=== PATIENT | male | born 1960 | race Caucasian/White ===

== ENCOUNTER 2018-09-23 14:36 | Outpatient (REF) | payer SELFPAY ==
[2018-09-23 22:51] LABS: Anion Gap 8.8 mmol/L (3-11); BUN 18 mg/dL (7-18); CO2 27.2 mmol/L (21.0-32.0); Calcium 8.9 mg/dL (8.5-10.1); Calculated LDL 97; Chloride 103 mmol/L (98-107); Cholesterol 194 mg/dL (50-200); Glucose 124 mg/dL (70-100); HDL Cholesterol 90 mg/dL (40-60); Magnesium 1.9 mg/dL (1.8-2.4); Potassium 4.4 mmol/L (3.5-5.1); Sodium 139 mmol/L (136-145); TSH (W/Ref FT4) 0.79 uIU/mL (0.358-3.74); Triglyceride 39 mg/dL (30-150)
[2018-09-25 10:42] LABS: Hepatitis C Ab w Rflx HCV PCR Negative (NEGAT)
== END 2018-09-23 14:56 ==
LOC: NCHCN 14:36
PROVIDERS: PCP Internal Medicine; Visit Provider Nurse Practitioner Family
DX: R07.9 Chest pain, unspecified (principal); F17.200 Nicotine dependence, unspecified, uncomplicated; F32.9 Major depressive disorder, single episode, unspecified; J44.9 Chronic obstructive pulmonary disease, unspecified; E66.9 Obesity, unspecified; Z11.59 Encounter for screening for other viral diseases
CPT/HCPCS: 80048; 80061; 83721; 86803; 83735; 84443

== ENCOUNTER 2018-10-01 12:46 | Outpatient (CLI) | payer SELFPAY ==
--- NOTE | 2018-10-01 13:00 | DI.CTLCSR_ITS ---
SYMPTOMS/DIAGNOSIS: TOBACCO ABUSE, F17.[address] FOR CANCER SCREENING: The examination was performed according to the usual protocol. Emphysematous changes are demonstrated in the lungs. No nodules are identified. The heart is not enlarged. There are atherosclerotic changes involving the aorta and allowing for the absence of contrast material, no evidence of an aneurysm. Prominent degenerative changes involving the mid and lower dorsal spine are identified. SUMMARY: There is evidence of COPD. No nodules are identified. Lung-RAD Category: Category 1- Negative Lung- RAD Management of Findings: Continue annual LDCT screening in 12 months
== END 2018-10-01 13:06 ==
PROVIDERS: PCP Internal Medicine; Visit Provider Nurse Practitioner Family
DX: Z87.891 Personal history of nicotine dependence (principal); Z12.2 Encounter for screening for malignant neoplasm of respiratory organs; J44.9 Chronic obstructive pulmonary disease, unspecified
CPT/HCPCS: G0297

== ENCOUNTER 2018-12-02 09:06 | Outpatient (REF) | payer SELFPAY ==
[2018-12-02 12:20] LABS: ALT 34 U/L (12-78); AST 20 U/L (15-37); Albumin 3.7 g/dL (3.4-5.0); Alkaline Phosphatase 82 U/L (46-116); Anion Gap 8.5 mmol/L (3-11); BUN 20 mg/dL (7-18); Bilirubin, Total 0.2 mg/dL (0.2-1.0); CO2 28.5 mmol/L (21.0-32.0); CREATININE 0.99 mg/dL (0.70-1.30); Calcium 8.8 mg/dL (8.5-10.1); Calculated LDL 88 mg/dL; Chloride 103 mmol/L (98-107); Cholesterol 191 mg/dL (50-200); Glucose 101 mg/dL (70-100); HDL Cholesterol 72 mg/dL (40-60); Potassium 4.6 mmol/L (3.5-5.1); Sodium 140 mmol/L (136-145); Total Protein 6.9 g/dL (6.4-8.2); Triglyceride 156 mg/dL (30-150)
== END 2018-12-02 09:26 ==
LOC: NCHCN 09:06
PROVIDERS: PCP Internal Medicine; Visit Provider Nurse Practitioner Family
DX: I70.90 Unspecified atherosclerosis (principal); E66.9 Obesity, unspecified
CPT/HCPCS: 80053; 80061; 83721

== ENCOUNTER 2019-02-02 08:00 | Emergency (ER) | payer SELFPAY ==
[2019-02-02] VITALS (27 sets, daily range): BP systolic 115–150; BP diastolic 47–72; PULSE 57–82; RESP 1–24; TEMP 36.8; O2SAT 92–100
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
[2019-02-02] MEDS: Lidocaine 5% Patch 1 PATCH TP (08:47)
[2019-02-02] MEDS: methylPREDNISolone SUCC 125 MG VIAL IVP (08:47)
[2019-02-02] MEDS: Albuterol/Ipratropium 3 ML UPD VIAL UPD (08:47)
[2019-02-02 09:06] LABS: Abs Immature Grans 0.05 k/cumm (0.0-0.09); Absolute Eosinophil Count 0.12 k/cumm (0.0-0.7); Absolute Lymphocyte Count 1.57 k/cumm (1.2-3.4); Absolute Monocyte Count 0.79 k/cumm (0.11-0.7); Basophils % 0.3; HCT 40.8 % (40.0-50.0); HGB 13.4 g/dL (13.5-17.5); Immature Grans % 0.4; Lymphocytes % 13.1; Mean Corp. HGB Concentration 32.8 g/dL (32.0-36.0); Mean Corpuscular Volume 97.4 fL (80-95); Mean Platelet Volume 9.8 fL (8.0-11.0); Monocytes % 6.6; Neutrophils % 78.6; Platelet Count 249 x1000/uL (130-400); RBC 4.19 m/cumm (4.50-6.00); RBC Distribution Width 13.7 % (11.8-14.1); White Blood Cell Count 11.96 k/cumm (4.4-10.8)
[2019-02-02 09:07] LABS: Absolute Basophil Count 0.04 k/cumm (0.0-0.2)
--- NOTE | 2019-02-02 09:12 | DI.RAD_ITS ---
EXAM: XR CHEST 2V PA LATERAL INDICATION: cough, sob, r/o pneumonia. COMPARISON: CHEST 2 VIEWS PA,LAT from 06/04/2017 TECHNIQUE: 2D digital imaging was performed. FINDINGS: The heart is not enlarged. The lungs are predominantly clear with question of very faint increased r adiodensity right upper lung field, faint pneumonia not excluded. No pleural effusion seen. IMPRESSION: Question minimal pneumonia right upper lobe, appropriate follow-up radiographs suggested as indicated clinically
[2019-02-02 09:22] LABS: ALT 28 U/L (16-63); AST 19 U/L (15-37); Albumin 3.6 g/dL (3.4-5.0); Alkaline Phosphatase 75 U/L (46-116); Anion Gap 7.3 mmol/L (3-11); BUN 21 mg/dL (7-18); Bilirubin, Total 0.2 mg/dL (0.2-1.0); CO2 28.7 mmol/L (21.0-32.0); CREATININE 1.17 mg/dL (0.70-1.30); Calcium 8.9 mg/dL (8.5-10.1); Chloride 105 mmol/L (98-107); Glucose 137 mg/dL (70-100); Potassium 4.5 mmol/L (3.5-5.1); Sodium 141 mmol/L (136-145)
[2019-02-02 09:28] LABS: Troponin I < 0.05 ng/mL (0.00-0.06)
[2019-02-02 09:34] LABS: D-Dimer 214 ng/mlFEU (<500)
[2019-02-02] MEDS: Ketorolac 30 MG/ML VIAL IVP (09:52)
--- NOTE | 2019-02-02 10:02 | DI.VRAD_ITS ---
PROCEDURE INFORMATION: Exam: XR Chest, 2 Views Exam date and time: 02/02/2019 8:42 AM Clinical history: 58 years old, male; Left-sided chest pain; Patient HX: Left sided chest pain, and SOB R/O pneumonia. TECHNIQUE: Imaging protocol: XR of the chest Views: 2 views. COMPARISON: CR CHEST 2 VIEWS PA,LAT 06/04/2017 8:05 PM FINDINGS: Lungs: Mild opacity in the right upper lobe may represent atelectasis or pneumonia. Pleural space: Unremarkable. No pleural effusion. No pneumothorax. Heart/Mediastinum: Unremarkable. No cardiomegaly. Bones/joints: Unremarkable. IMPRESSION: Mild opacity in the right upper lobe may represent atelectasis or pneumonia. Dictated and Authenticated by: Carly Torres MD. Ordering:JILLIAN Marie MD
[2019-02-02] MEDS: levoFLOXacin 500 MG, levoFLOXacin 250 MG 750 MG PO (10:46)
== END 2019-02-02 10:48 | disposition home or self-care (01) ==
PROVIDERS: Emergency Provider Physician Assistant; PCP Internal Medicine
DX: J18.9 Pneumonia, unspecified organism (principal); S29.011A Strain of muscle and tendon of front wall of thorax, initial encounter; X58.XXXA Exposure to other specified factors, initial encounter; J44.9 Chronic obstructive pulmonary disease, unspecified; F17.210 Nicotine dependence, cigarettes, uncomplicated
CPT/HCPCS: 36415; 80053; 93005; 96374; 96375; 99285; 71046; 83735; 84484; 85025; 85379; 93010; J1885; J2930; J7620

== ENCOUNTER 2020-11-12 20:03 | Outpatient (REF) | payer SELFPAY ==
[2020-11-12 20:56] LABS: Abs Immature Grans 0.02 10^3/uL (0.0-0.06); Absolute Basophil Count 0.05 10^3/uL (0.0-0.2); Absolute Eosinophil Count 0.15 10^3/uL (0.0-0.7); Absolute Lymphocyte Count 2.56 10^3/uL (1.2-3.4); Absolute Monocyte Count 0.74 10^3/uL (0.1-0.8); Absolute Neutrophil Count 5.68 10^3/uL (1.2-6.7); Basophils % 0.5; Eosinophils % 1.6; HCT 40.1 % (40.0-50.0); HGB 13.2 g/dL (13.5-17.5); Immature Grans % 0.2; Lymphocytes % 27.8; MCH 31.6 pg (27.0-33.0); MCHC 32.9 % (32.0-36.0); MCV 95.9 fL (80-95); MPV 11.2 fL (8.0-11.0); Neutrophils % 61.9; Nucleated RBC 0 %; Platelet Count 236 10^3/uL (130-400); RBC 4.18 10^6/uL (4.36-5.78); RDW 13.1 % (11.8-14.1); RDW-SD 46.9 fL
[2020-11-12 21:05] LABS: Iron 58 ug/dL (65-175)
[2020-11-12 21:15] LABS: Hemoglobin A1C 6.1 % (<5.7)
[2020-11-12 21:16] LABS: ALT 25 U/L (16-63); AST 19 U/L (15-37); Albumin 3.8 g/dL (3.4-5.0); Alkaline Phosphatase 79 U/L (46-116); Anion Gap 9.2 mmol/L (3-11); BUN 12 mg/dL (7-18); Bilirubin, Total 0.2 mg/dL (0.2-1.0); CO2 28.8 mmol/L (21.0-32.0); CREATININE 1.2 mg/dL (0.70-1.30); Calcium 8.8 mg/dL (8.5-10.1); Chloride 105 mmol/L (98-107); Glucose 138 mg/dL (74-106); Potassium 4.3 mmol/L (3.5-5.1); Sodium 143 mmol/L (136-145); Total Protein 6.9 g/dL (6.4-8.2)
== END 2020-11-12 20:04 | disposition home or self-care (01) ==
LOC: NCHCN 20:03
PROVIDERS: PCP Internal Medicine; Visit Provider Nurse Practitioner Family
DX: K30 Functional dyspepsia; I70.90 Unspecified atherosclerosis; J44.9 Chronic obstructive pulmonary disease, unspecified; E66.9 Obesity, unspecified; F32.9 Major depressive disorder, single episode, unspecified; F17.200 Nicotine dependence, unspecified, uncomplicated
CPT/HCPCS: 80053; 83036; 83540; 84443; 85025

== ENCOUNTER 2020-12-09 17:40 | Outpatient (REF) | payer SELFPAY ==
[2020-12-09 14:00] LABS: Iron 58 ug/dL (65-175)
[2020-12-09 14:05] LABS: HGB 12.8 g/dL (13.5-17.5)
== END 2020-12-09 17:41 | disposition home or self-care (01) ==
LOC: NCHCN 17:40
PROVIDERS: PCP Internal Medicine; Visit Provider Nurse Practitioner Family
DX: D50.9 Iron deficiency anemia, unspecified (principal); R73.03 Prediabetes; R53.83 Other fatigue; F17.200 Nicotine dependence, unspecified, uncomplicated
CPT/HCPCS: 83540; 85018

== ENCOUNTER 2021-04-21 15:49 | Outpatient (REF) | payer SELFPAY ==
[2021-04-21 20:54] LABS: HCT 40.6 % (40.0-50.0); HGB 13.5 g/dL (13.5-17.5); MCH 30.8 pg (27.0-33.0); MCHC 33.3 % (32.0-36.0); MCV 92.7 fL (80-95); MPV 11.5 fL (8.0-11.0); Platelet Count 216 10^3/uL (130-400); RBC 4.38 10^6/uL (4.36-5.78); RDW 12.4 % (11.8-14.1); RDW-SD 42.7 fL; WBC 8.06 10^3/uL (4.4-10.8)
[2021-04-21 21:19] LABS: Iron 67 ug/dL (65-175); Total Iron Binding Capacity 296 ug/dL (250-450); Transferrin Sat 23 % (20-55)
[2021-04-21 21:33] LABS: Ferritin 114 ng/mL (26-388)
[2021-04-21 21:52] LABS: Hemoglobin A1C 6.1 % (<5.7)
== END 2021-04-21 15:50 | disposition home or self-care (01) ==
LOC: NCHCN 15:49
PROVIDERS: PCP Internal Medicine; Visit Provider Nurse Practitioner Family
DX: R53.83 Other fatigue (principal); D50.9 Iron deficiency anemia, unspecified; J44.9 Chronic obstructive pulmonary disease, unspecified; R73.03 Prediabetes
CPT/HCPCS: 85027; 82728; 83036; 83540; 83550

== ENCOUNTER 2021-11-01 19:38 | Outpatient (REF) | payer SELFPAY ==
[2021-11-01 20:09] LABS: Abs Immature Grans 0.02 10^3/uL (0.0-0.06); Absolute Basophil Count 0.04 10^3/uL (0.0-0.2); Absolute Eosinophil Count 0.33 10^3/uL (0.0-0.7); Absolute Lymphocyte Count 2.21 10^3/uL (1.2-3.4); Absolute Monocyte Count 0.78 10^3/uL (0.1-0.8); Absolute Neutrophil Count 4.29 10^3/uL (1.2-6.7); Basophils % 0.5; Eosinophils % 4.3; HGB 13.6 g/dL (13.5-17.5); Immature Grans % 0.3; Lymphocytes % 28.8; MCH 31.7 pg (27.0-33.0); MCV 93 fL (80-95); MPV 11.2 fL (8.0-11.0); Monocytes % 10.2; Neutrophils % 55.9; Platelet Count 241 10^3/uL (130-400); RBC 4.29 10^6/uL (4.36-5.78); RDW 12.3 % (11.8-14.1); RDW-SD 42.5 fL; WBC 7.67 10^3/uL (4.4-10.8)
[2021-11-01 20:44] LABS: ALT 25 U/L (16-63); AST 20 U/L (15-37); Albumin 3.9 g/dL (3.4-5.0); Alkaline Phosphatase 78 U/L (46-116); Anion Gap 9.4 mmol/L (3-11); BUN 16 mg/dL (7-18); Bilirubin, Total 0.3 mg/dL (0.2-1.0); CO2 28.6 mmol/L (21.0-32.0); Calcium 8.9 mg/dL (8.5-10.1); Calculated LDL 56 mg/dL (<100); Chloride 104 mmol/L (98-107); Cholesterol 116 mg/dL (<200); Ferritin 175 ng/mL (26-388); Glucose 84 mg/dL (74-106); HDL Cholesterol 46 mg/dL (40-60); Potassium 3.9 mmol/L (3.5-5.1); Sodium 142 mmol/L (136-145); TSH (W/Ref FT4) 1.47 uIU/mL (0.36-3.74); Total Protein 7.1 g/dL (6.4-8.2); Triglyceride 71 mg/dL (<150); Vitamin B12 652 pg/mL (193-986)
[2021-11-01 21:00] LABS: Iron 60 ug/dL (65-175); Total Iron Binding Capacity 289 ug/dL (250-450); Transferrin Sat 21 % (20-55)
== END 2021-11-01 19:39 | disposition home or self-care (01) ==
LOC: NCHCN 19:38
PROVIDERS: PCP Internal Medicine; Visit Provider Nurse Practitioner Family
DX: Z00.00 Encounter for general adult medical examination without abnormal findings (principal); D50.9 Iron deficiency anemia, unspecified; R73.03 Prediabetes; I70.90 Unspecified atherosclerosis; F17.200 Nicotine dependence, unspecified, uncomplicated; J44.9 Chronic obstructive pulmonary disease, unspecified; J98.4 Other disorders of lung; R53.83 Other fatigue
CPT/HCPCS: 80053; 80061; 82607; 82728; 83540; 83550; 84443; 85025

== ENCOUNTER 2022-07-22 09:03 | Inpatient (IN) | payer MEDICAID, SELFPAY ==
[2022-07-22] VITALS (20 sets, daily range): BP systolic 116–149; BP diastolic 55–79; PULSE 20–100; RESP 8–88; TEMP 36–36.8; O2SAT 87–97
--- NOTE | 2022-07-22 09:15 | RT.EKG_ITS ---
APPROVED REPORT Exam: Resting ECG Reason for Exam: sob Patient Location: E HR:75 bpm ECG Measurements Heart Rate 75 AXIS HI 139 P 83 QRSd 104 QRS 74 QT 381 T 55 QTc 416 Conclusion Sinus rhythm...normal P axis, V-rate 60- 99 Ventricular premature complex...V complex w/ short R-R interval
--- NOTE | 2022-07-22 09:15 | DI.RAD_ITS ---
Exam(s) XR CHEST 2V PA LATERAL EXAM: XR CHEST 2V PA LATERAL CLINICAL HISTORY: sob. TECHNIQUE: 2D digital imaging was performed. COMPARISON: CR CHEST 2 VIEWS PA,LAT from 06/04/2017 FINDINGS: 2 views: Heart size is normal. The mediastinum is not widened. Lungs are clear. No infiltrates nor pleural effusions. IMPRESSION: No acute pulmonary findings. DATA REPOSITORY: RADIATION DOSE DELIVERED:
[2022-07-22 10:01] LABS: Abs Immature Grans 0.02 10^3/uL (0.0-0.06); Absolute Basophil Count 0.06 10^3/uL (0.0-0.2); Absolute Eosinophil Count 0.49 10^3/uL (0.0-0.7); Absolute Lymphocyte Count 2.68 10^3/uL (1.2-3.4); Absolute Monocyte Count 0.62 10^3/uL (0.1-0.8); Absolute Neutrophil Count 6.55 10^3/uL (1.2-6.7); Basophils % 0.6; Eosinophils % 4.7; HCT 42.9 % (40.0-50.0); HGB 14.3 g/dL (13.5-17.5); Immature Grans % 0.2; Lymphocytes % 25.7; MCH 30.8 pg (27.0-33.0); MCHC 33.3 % (32.0-36.0); MCV 93 fL (80-95); Neutrophils % 62.8; Platelet Count 234 10^3/uL (130-400); RBC 4.64 10^6/uL (4.36-5.78); RDW 12.8 % (11.8-14.1); RDW-SD 43.6 fL; WBC 10.42 10^3/uL (4.4-10.8)
--- NOTE | 2022-07-22 10:04 | NUR.NOTE ---
Nursing Note: Report received from Marni CANO
[2022-07-22] MEDS: MAGNESIUM SULFATE 1 GM/100 ML BAG IVPB (10:16)
[2022-07-22] MEDS: methylPREDNISolone SUCC 125 MG VIAL IM (10:16)
[2022-07-22] MEDS: Albuterol 2.5 MG/3 ML INH SOLN VIAL UPD ×3 (10:16→11:18)
[2022-07-22] MEDS: Normal Saline 1,000 ML 1000 ML IV (10:17)
[2022-07-22 10:21] LABS: NT-proBNP 96 pg/mL (<300); Troponin I < 50 ng/L (<or=60)
[2022-07-22 10:26] LABS: COVID-19 PCR Negative (Negative); Influenza A PCR Negative (Negative); Influenza B PCR Negative (Negative); RSV PCR Negative (Negative)
[2022-07-22 10:27] LABS: Source Nasopharynx
--- NOTE | 2022-07-22 10:42 | NUR.NOTE ---
Nursing Note: Pt O2 sat 88-89% on RA and insp/exp wheezes noted audibly. Pt placed on O2@2L NC and sat 94%. Dr Aguilar notified. Awaiting orders
--- NOTE | 2022-07-22 11:47 | NUR.NOTE ---
Nursing Note: Pt leaving ED to Xray via WC
--- NOTE | 2022-07-22 12:01 | DI.VRAD_ITS ---
PROCEDURE INFORMATION: Exam: XR Chest Exam date and time: 07/22/2022 11:50 AM Age: 62 years old Clinical indication: Shortness of breath; Patient HX: SOB TECHNIQUE: Imaging protocol: Radiologic exam of the chest. Views: 2 views. COMPARISON: CT CHEST LUNG CANCER SCREEN 11/16/2020 8:16 AM FINDINGS: Lungs: The lung volumes are increased. No consolidations, infiltrates or pulmonary edema. Pleural spaces: Unremarkable. No pleural effusion. No pneumothorax. Heart/Mediastinum: Unremarkable. No cardiomegaly. Bones/joints: Mild degenerative changes of the osseous structures. IMPRESSION: No acute cardiopulmonary disease. Dictated and Authenticated by: Amilcar Recinos MD. Ordering:FAWAD Cleaning MD
--- NOTE | 2022-07-22 12:06 | W.ED.GENAD ---
Discharge Plan Disposition Patient Disposition: Admit to [facility] Discharge Details Chief Complaint: RespSymp Clinical Impression: Acute exacerbation of chronic obstructive pulmonary disease Primary Care Provider: Ernesto Emerson ED Provider: Black Aguilar Home Meds and New Rx's Prescriptions: No Action loratadine 10 mg tablet 10 mg PO DAILY montelukast [Singulair] 10 mg tablet 10 mg PO DAILY aspirin [Adult Low Dose Aspirin] 81 mg tablet,delayed release (DR/EC) 81 mg PO DAILY albuterol sulfate [ProAir HFA] 90 mcg/actuation HFA aerosol inhaler 2 puff inhalation Q6H PRN Advair HFA 230-21 mcg/actuation HFA aerosol inhaler 1 puff inhalation BID budesonide [Pulmicort] 0.5 mg/2 mL suspension for nebulization 0.25 mg inhalation BID simvastatin 20 mg tablet 20 mg PO DAILY Spiriva with HandiHaler 18 mcg capsule, w/inhalation device 1 cap inhalation DAILY Patient Comments: not taking Rx Instructions: puncture 1 cap using device; one dose = 2 inhalations Spiriva with HandiHaler 18 mcg capsule, w/inhalation device 1 cap inhalation DAILY Patient Comments: not taking Rx Instructions: puncture 1 cap using device; one dose = 2 inhalations sertraline 100 MG tablet 150 mg PO DAILY albuterol sulfate [ProAir HFA] 8.5 GM HFA aerosol inhaler 2 puff Inhalation PRN PRN ferrous sulfate 325 mg (65 mg iron) Tablet 325 mg PO DIRECTED Incruse Ellipta 62.5 mcg/actuation blister with device 1 inh INHALATION PRN PRN Patient Comments: Inhale 1 puff as directed once a day Medical Decision Making Patient presents to the emergency department with what appears to be an exacerbation of his COPD. EKG interpreted by me does not show any signs of ischemia. Please see full interpretation. Chest x-ray does not reveal any acute disease per my read this was confirmed by radiology. Negative COVID and influenza Normal troponin. No elevation of the BNP. The patient was treated with wvep-[id number] nebs magnesium and Solu-Medrol in the emergency department. He was able to maintain sats at rest approximately 92. Upon ambulation trial he desatted to 86 with increased work of breathing. Case discussed with hospitalist who will be admitting the patient for his COPD exacerbation. HPI General Date/Time Provider Initiated Documentation: 07/22/22 09:19. HPI Narrative: 60-year-old gentleman presents to the emergency room with 1 week history of increased shortness of breath, increased use of his MDI for the past week. No fevers no chills. Positive cough that is nonproductive. Shortness of breath increased with minimum exertion. Patient unfortunately still smoking 1 pack/day. He tells me that he has been using his albuterol almost every 1/2 hour while he is awake. No recent hospitalizations. No recent use of steroids. Patient states that he has been admitted for COPD exacerbation as well as pneumonia in the past. No chest pain. No diaphoresis. No abdominal pain. Related Data Home Medications Medication Instructions Recorded Confirmed sertraline 100 mg tablet 150 mg PO DAILY 06/29/13 07/22/22 albuterol sulfate 90 mcg/actuation 2 puff inhalation PRN PRN 06/04/17 02/02/19 aerosol inhaler (ProAir HFA) albuterol sulfate 90 mcg/actuation 2 puff inhalation Q6H PRN 11/19/20 07/22/22 aerosol inhaler (ProAir HFA) aspirin 81 mg tablet,delayed 81 mg PO DAILY 11/19/20 07/22/22 release (Adult Low Dose Aspirin) budesonide 0.5 mg/2 mL suspension 0.25 mg inhalation BID 11/19/20 for nebulization (Pulmicort) fluticasone propionate 230 1 puff inhalation BID 11/19/20 07/22/22 mcg-salmeterol 21 mcg/actuation HFA inhaler (Advair HFA) loratadine 10 mg tablet 10 mg PO DAILY 11/19/20 07/22/22 montelukast 10 mg tablet 10 mg PO DAILY 11/19/20 07/22/22 (Singulair) simvastatin 20 mg tablet 20 mg PO DAILY 11/19/20 07/22/22 tiotropium bromide 18 mcg capsule 1 cap inhalation DAILY 11/19/20 with inhalation device (Spiriva with HandiHaler) tiotropium bromide 18 mcg capsule 1 cap inhalation DAILY 11/30/20 with inhalation device (Spiriva with HandiHaler) ferrous sulfate 325 mg (65 mg 325 mg PO DIRECTED 07/22/22 07/22/22 iron) tablet umeclidinium 62.5 mcg/actuation 1 inh inhalation PRN PRN 07/22/22 07/22/22 blister powder for inhalation (Incruse Ellipta) Allergies Allergy/AdvReac Type Severity Reaction Status Date / Time Penicillins Allergy Unknown Unverified 02/02/19 08:16 General Stated Complaint: RespSymp KATE: 3 Review of Systems Narrative: 10 point review of system is negative unless otherwise specified in the HPI PFSH All Active Problems (Updated 07/22/22 @ 12:13 by Black Aguilar MD) Acute exacerbation of chronic obstructive pulmonary disease (Acute) Medical History (Updated 07/22/22 @ 12:13 by Black Aguilar MD) Anemia Atherosclerosis Chest pain COPD (chronic obstructive pulmonary disease) Depression Diabetes Dyspepsia Fatigue Iron deficiency anemia Mass of testicle Sleep apnea Surgical History No significant past surgical history Social History (Updated 12/01/20 @ 08:11 by Milli Suh) Smoking/Tobacco Use Status: Current every day Tobacco Type: cigarettes Smoking packs per day: 1.5 Smoking cigarettes per day: 30.0 Smoking risk assessment performed?: Yes Alcohol Intake: never Drug use: Never Substance use type: does not use Do you feel safe at home: Yes Do you feel safe in your relationship?: Yes Exam Narrative Exam Narrative: Awake alert [place] x3 calm with mild increased work of breathing. Positive dyspnea. Positive for sleep breathing intermittently. Pleasant cooperative speaking in full sentences. PERRLA EOMI MMM Neck no JVD supple Heart regular rhythm and rate no murmurs Lungs scattered wheezing throughout all freeman. Abdomen soft nondistended nontender Extremities no edema full range of motion strength are 5 Neuro grossly intact Psych flat affect and mood Skin no rashes Course Vital Signs Vital signs: Vital Signs Pulse 85 07/22/22 09:11 Blood Pressure 128/67 07/22/22 09:11 Pulse Oximetry 92 07/22/22 09:11 Pulse 98 H 07/22/22 11:45 Respiratory Rate 18 07/22/22 11:21 Respiratory Effort Short of Breath 07/22/22 09:14 Blood Pressure 128/67 07/22/22 09:11 Blood Pressure Position Sitting 07/22/22 09:11 Pulse Oximetry 95 07/22/22 11:45 Oxygen Delivery Method Room Air 07/22/22 11:45 Oxygen Flow Rate 0 07/22/22 11:45 Lab/Test Results Lab/Test Results: Laboratory Tests Range/Units 07/22/22 07/22/22 07/22/22 09:39 09:53 09:53 WBC (4.4-10.8) 10^3/uL 10.42 RBC (4.36-5.78) 10^6/uL 4.64 Hgb (13.5-17.5) g/dL 14.3 Hct (40.0-50.0) % 42.9 MCV (80-95) fL 93 MCH (27.0-33.0) pg 30.8 MCHC (32.0-36.0) % 33.3 RDW (11.8-14.1) % 12.8 Plt Count (130-400) 10^3/uL 234 MPV (8.0-11.0) fL 10.0 Immature Gran % 0.2 Neutrophils % 62.8 Lymphocytes % 25.7 Monocytes % 6.0 Eosinophils % 4.7 Basophils % 0.6 Nucleated RBC % (0.0-0.3) % 0.0 Absolute Neutrophils (1.2-6.7) 10^3/uL 6.55 Absolute Lymphocytes (1.2-3.4) 10^3/uL 2.68 Absolute Monocytes (0.1-0.8) 10^3/uL 0.62 Absolute Eosinophils (0.0-0.7) 10^3/uL 0.49 Absolute Basophils (0.0-0.2) 10^3/uL 0.06 Troponin I (<or=60) ng/L < 50 NT-Pro-B Natriuret Pep (<300) pg/mL 96 COVID-19 Source Nasopharynx SARS-CoV-2 (PCR) (Negative) Negative Influenza Type A (PCR) (Negative) Negative Influenza Type B (PCR) (Negative) Negative RSV (PCR) (Negative) Negative Critical Care Time Critical Care Time Total Critical Care Time: 30 Attestation: Please see MDM for full description. Essentially COPD exacerbation requiring multiple normalization's as well as magnesium and reevaluations.
--- NOTE | 2022-07-22 12:12 | NUR.NOTE ---
Nursing Note: Pt ambulated in hallway on RA. O2 dropped from 93% to 86% and HR 112. Dr Aguilar notified. Pt back to bed and placed on 2LNC and sat 95%. Will cont to monitor.
[2022-07-22 12:47] LABS: Lab Add On Test DONE
[2022-07-22 13:17] LABS: Procalcitonin < 0.1 ng/mL
--- NOTE | 2022-07-22 13:24 | HPE_ITS ---
Date of service: 07/22/22 Time of Service: 13:24 Assessment and Plan Assessment and plan (1) Acute exacerbation of chronic obstructive pulmonary disease: Status: Acute Assessment and plan: Procalcitonin negative; no evidence of infiltrate on CXR; however, reports purulent sputum. Suspect acute bacterial component. Given this and otitis media, I think he would benefit from antibiotics and steroids. Will treat with scheduled + prn bronchodilators, symbicort, budesonide nebs, systemic steroids. Azithromycin + ceftriaxone. Encourage pulmonary toilet. Discourage tobacco abuse. (2) Hypoxia: Status: Acute Assessment and plan: Due to above. As above. Wean O2 as tolerated. (3) Otitis media: Status: Acute Assessment and plan: Abx/steroids as above Will discuss with pharmacy if we have any topical therapies. (4) Diabetes: Assessment and plan: As listed in EMR. Patient denies this diagnosis. The only A1Cs I see in the computer are 6.1; there is no evidence that the patient is on any medications for diabetes. I suspect he has prediabetes at this point. Regardless, I anticipate steroid-induced hyperglycemia. Will monitor for this. Carb consistent diet. (5) Sleep apnea: Assessment and plan: Not on CPAP at home. F/u as outpatient. (6) Iron deficiency anemia: Assessment and plan: Continue home iron repletion (7) Tobacco abuse: Status: Acute Assessment and plan: Encourage tobacco cessation (8) DVT prophylaxis: Status: Acute Assessment and plan: Sc enoxaparin (9) Discharge planning issues: Status: Acute Assessment and plan: Full code History of Present Illness History of Present Illness Chief Complaint: Shortness of breath/cough, L ear pain Narrative: Mr Jane is a 62 year old male with PMHx of non-oxygen dependent COPD, ongoing tobacco abuse, prediabetes, Sleep apnea not on CPAP, who presented to [facility] ED today c/o 1 week of shortness of breath, requiring that he use his albuterol MDI every 30 minutes. The symptoms were especially bad x 48 hrs, accompanied by L ear pain and sore throat. He also reported subjective fevers. He has been coughing (sputum yellow). He is continuing to smoke. His ER workup revealed no evidence of a bacterial infection. He was initiated on nebulizers and steroids. He desaturated down to 86% when ambulating after the treatments, however, necessitating a hospitalist admission. Review of Systems All systems reviewed & are unremarkable except as noted in HPI and below PFSH All Active Problems Otitis media (Acute) Tobacco abuse (Acute) Hypoxia (Acute) Discharge planning issues (Acute) DVT prophylaxis (Acute) Acute exacerbation of chronic obstructive pulmonary disease (Acute) Medical History Anemia Atherosclerosis Chest pain COPD (chronic obstructive pulmonary disease) Depression Diabetes Dyspepsia Fatigue Iron deficiency anemia Mass of testicle Sleep apnea Surgical History No significant past surgical history Family History Mother Diabetes Social History Smoking/Tobacco Use Status: Current every day Tobacco Type: cigarettes Smoking packs per day: 1.5 Smoking cigarettes per day: 30.0 Smoking risk assessment performed?: Yes Alcohol Intake: never Drug use: Never Substance use type: does not use Do you feel safe at home: Yes Do you feel safe in your relationship?: Yes Meds Allergies and Home Medications Allergies Allergy/AdvReac Type Severity Reaction Status Date / Time Penicillins Allergy Unknown Unverified 02/02/19 08:16 Home Medications Medication Instructions Recorded Confirmed Type sertraline 100 mg tablet 150 mg PO DAILY 06/29/13 07/22/22 History albuterol sulfate 90 mcg/actuation 2 puff inhalation PRN PRN 06/04/17 02/02/19 History aerosol inhaler (ProAir HFA) albuterol sulfate 90 mcg/actuation 2 puff inhalation Q6H PRN 11/19/20 07/22/22 History aerosol inhaler (ProAir HFA) aspirin 81 mg tablet,delayed 81 mg PO DAILY 11/19/20 07/22/22 History release (Adult Low Dose Aspirin) budesonide 0.5 mg/2 mL suspension 0.25 mg inhalation BID 11/19/20 History for nebulization (Pulmicort) fluticasone propionate 230 1 puff inhalation BID 11/19/20 07/22/22 History mcg-salmeterol 21 mcg/actuation HFA inhaler (Advair HFA) loratadine 10 mg tablet 10 mg PO DAILY PRN PRN 11/19/20 07/22/22 History montelukast 10 mg tablet 10 mg PO DAILY 11/19/20 07/22/22 History (Singulair) simvastatin 20 mg tablet 20 mg PO QPM 11/19/20 07/22/22 History ferrous sulfate 325 mg (65 mg 325 mg PO DAILY 07/22/22 07/22/22 History iron) tablet umeclidinium 62.5 mcg/actuation 1 inh inhalation PRN PRN 07/22/22 07/22/22 History blister powder for inhalation (Incruse Ellipta) Exam Narrative Exam Narrative: General: Pleasant middle-aged male who appears mildly anxious, A&Ox3, NAD Neurological: A&Ox3, no focal deficits Psychiatric: Midly anxious, appropriate speech pattern/content Skin: Visible skin intact, including B feet HEENT: Atraumatic, normocephalic, EOMI, MMM, clear oropharynd - no pharyngeal erythema, L ear canal erythematous and tender to examination; I am unable to v isualize this patient's typmanic membrane. No evidence of purulence in the ear canal. Mild submandibular lymphadenopathy, no goiter or JVD Cardiovascular: RRR, no m/r/g Lungs: Wheezing on expiration B Gastrointestinal: soft, nontender, nondistended Genitourinary: deferred Extremities: very trace pedal pulses, no edema BLEs, no c/c. Results Imaging Additional studies: CXR: No acute cardiopulmonary disease. EKG: HR 75, NSR/PVCs, no acute ischemia, Labs 07/22/22 09:53 Labs: Laboratory Results - last 24 hr 07/22/22 07/22/22 07/22/22 09:39 09:53 09:53 WBC 10.42 RBC 4.64 Hgb 14.3 Hct 42.9 MCV 93 MCH 30.8 MCHC 33.3 RDW 12.8 Plt Count 234 MPV 10.0 Immature Gran % 0.2 Neutrophils % 62.8 Lymphocytes % 25.7 Monocytes % 6.0 Eosinophils % 4.7 Basophils % 0.6 Nucleated RBC % 0.0 Absolute Neutrophils 6.55 Absolute Lymphocytes 2.68 Absolute Monocytes 0.62 Absolute Eosinophils 0.49 Absolute Basophils 0.06 Troponin I < 50 NT-Pro-B Natriuret Pep 96 Procalcitonin COVID-19 Source Nasopharynx SARS-CoV-2 (PCR) Negative Influenza Type A (PCR) Negative Influenza Type B (PCR) Negative RSV (PCR) Negative Add-On Test Request 07/22/22 07/22/22 09:53 12:47 WBC RBC Hgb Hct MCV MCH MCHC RDW Plt Count MPV Immature Gran % Neutrophils % Lymphocytes % Monocytes % Eosinophils % Basophils % Nucleated RBC % Absolute Neutrophils Absolute Lymphocytes Absolute Monocytes Absolute Eosinophils Absolute Basophils Troponin I NT-Pro-B Natriuret Pep Procalcitonin < 0.1 COVID-19 Source SARS-CoV-2 (PCR) Influenza Type A (PCR) Influenza Type B (PCR) RSV (PCR) Add-On Test Request DONE Last Vital Signs Pulse 80 07/22/22 13:14 Resp 18 07/22/22 11:21 BP 125/55 L 07/22/22 13:14 Pulse Ox 95 07/22/22 12:31 Time Spent Time spent with Patient: 55-74 minutes Time was spent: preparing to see the patient(eg.review tests), obtaining and/or reviewing separately otained hiistory, ordering medications,tests, procedures, referring, communicating with other health home care provider, indepentently interpreting results, counseling the patient and care coordination
[2022-07-22 13:26] LABS: Troponin I < 50 ng/L (<or=60)
[2022-07-22] MEDS: Enoxaparin 40 MG/0.4 ML SYR SC (14:50)
[2022-07-22] MEDS: Nicotine 14 MG/24 HR PATCH TD (14:59)
--- NOTE | 2022-07-22 16:29 | RESPIRATORY ---
Patient reports that he does not currently use O2 at home.
[2022-07-22] MEDS: Albuterol/Ipratropium 3 ML UPD VIAL UPD (17:55)
[2022-07-22] MEDS: guaiFENesin 600 MG TABCR PO (20:15)
[2022-07-22] MEDS: Simvastatin 20 MG TAB PO (20:15)
[2022-07-22] MEDS: cefTRIAXone 1 GM/50 ML BAG IVPB (20:15)
[2022-07-22] MEDS: Budesonide 0.5 MG/2 ML UPD VIAL 0.25 MG IH (20:16)
[2022-07-22] MEDS: Budesonide/Formoterol 160/4.5 6 GM 60 PUFF INH IH (20:18)
[2022-07-22] MEDS: AZITHROMYCIN 500 MG in Normal Saline 500 ML 166.6 MG IVPB (21:35)
[2022-07-23] VITALS (9 sets, daily range): BP systolic 111–133; BP diastolic 60–66; PULSE 63–79; RESP 4–20; TEMP 36–36.3; O2SAT 93–98
[2022-07-23] MEDS: Albuterol/Ipratropium 3 ML UPD VIAL UPD ×3 (00:43→12:12)
[2022-07-23] MEDS: Albuterol 2.5 MG/3 ML INH SOLN VIAL UPD (07:17)
[2022-07-23] MEDS: Umeclidinium 7 CAP INHALER 1 CAP IH (07:17)
[2022-07-23] MEDS: Budesonide/Formoterol 160/4.5 6 GM 60 PUFF INH IH (07:17)
[2022-07-23 07:18] LABS: Abs Immature Grans 0.06 10^3/uL (0.0-0.06); Absolute Lymphocyte Count 2.52 10^3/uL (1.2-3.4); Basophils % 0.2; Eosinophils % 0.1; HCT 37.2 % (40.0-50.0); HGB 12.5 g/dL (13.5-17.5); Immature Grans % 0.3; Lymphocytes % 13.5; MCH 31.2 pg (27.0-33.0); MCHC 33.6 % (32.0-36.0); MCV 93 fL (80-95); MPV 10.4 fL (8.0-11.0); Monocytes % 6.6; Neutrophils % 79.3; Platelet Count 204 10^3/uL (130-400); RBC 4.01 10^6/uL (4.36-5.78); RDW 12.9 % (11.8-14.1)
[2022-07-23] MEDS: Budesonide 0.5 MG/2 ML UPD VIAL 0.25 MG IH (07:18)
[2022-07-23 07:19] LABS: Absolute Basophil Count 0.04 10^3/uL (0.0-0.2); Absolute Eosinophil Count 0.02 10^3/uL (0.0-0.7); Absolute Monocyte Count 1.23 10^3/uL (0.1-0.8); Absolute Neutrophil Count 14.83 10^3/uL (1.2-6.7)
[2022-07-23 07:37] LABS: Anion Gap 10.2 mmol/L (3-11); BUN 14 mg/dL (7-18); CO2 25.8 mmol/L (21.0-32.0); Calcium 8.5 mg/dL (8.5-10.1); Chloride 110 mmol/L (98-107); Glucose 116 mg/dL (74-106); Magnesium 2.2 mg/dL (1.8-2.4); Potassium 3.5 mmol/L (3.5-5.1); Sodium 146 mmol/L (136-145)
[2022-07-23 08:26] LABS: Hemoglobin A1C 6.2 % (<5.7)
[2022-07-23] MEDS: Pantoprazole 40 MG TABCR PO (09:40)
[2022-07-23] MEDS: Aspirin E.C. 81 MG TABEC PO (09:40)
[2022-07-23] MEDS: predniSONE 20 MG TAB 40 MG PO (09:41)
[2022-07-23] MEDS: Montelukast 10 MG TAB PO (09:41)
[2022-07-23] MEDS: Ferrous Sulfate 325 MG TAB PO (09:41)
[2022-07-23] MEDS: guaiFENesin 600 MG TABCR PO (09:41)
[2022-07-23] MEDS: Sertraline 100 MG TAB 150 MG PO (09:41)
--- NOTE | 2022-07-23 10:35 | DSE_ITS ---
Date of service: 07/23/22 Time of Service: 10:35 DS: Diagnosis Discharge Diagnosis (1) Acute exacerbation of chronic obstructive pulmonary disease: Status: Acute (2) Hypoxia: Status: Resolved (3) Otitis media: Status: Acute (4) Prediabetes: Status: Acute (5) Sleep apnea: (6) Iron deficiency anemia: (7) Tobacco abuse: Status: Acute Discharge Plan Disposition Patient Disposition: Home Condition: Improving Discharge Details Reason For Visit: Acute exacerbation of COPD Admit Date/Time: 07/22/22 12:08 Admit Provider: Patricia Lagos Attending Provider: Patricia Lagos Primary Care Provider: Ernesto Emerson Hospital Course Hospital Course: Mr Jane is a 62 year old male with PMHx of non-oxygen dependent COPD, tobacco abuse, prediabetes, sleep apnea not on CPAP, who was a patient on [facility] hospitalist service from 07/22/22 until 07/23/22 for acute exacerbation of COPD as well as otitis media. He did describe a cough productive of purulent sputum and, therefore, was treated with antibiotics (ceftriaxone + azithromycin), steroids, scheduled + prn nebulizer treatments, and symbicort. While he had an ambulatory oxygen requirement on admission (desaturating to 88% on RA), today he does not require oxygen on ambulation and feels a lot better. He is ready to be discharged home today to complete a 5 day course of antibiotics and steroids. He was advised to stop smoking and is getting referred to [facility] to help him afford his nicotine patches. Care for patient as well as completion of his discharge summary on day of dis charge took 45 minutes. Home Meds and New Rx's Prescriptions: New ipratropium-albuterol 0.5 mg-3 mg(2.5 mg base)/3 mL Solution For Nebulization 3 ml UPD Q6H PRN PRN (Reason: shortness of breath or wheezing) Qty: 90 0RF guaifenesin [Mucus Relief ER] 600 mg Tablet Extended Release 12hr 600 mg PO BID PRN PRN (Reason: cough) Qty: 20 0RF nicotine 14 mg/24 hr Patch 24 Hour 14 mg transdermal DAILY PRN PRNQty: 30 0RF prednisone 20 mg Tablet 40 mg PO DAILY Qty: 6 0RF Rx Instructions: next dose tomorrow morning azithromycin 250 mg tablet 250 mg PO QPM Qty: 4 0RF cefpodoxime 200 mg tablet 200 mg PO BID Qty: 8 0RF Rx Instructions: must administer with a meal/food famotidine [Pepcid] 20 mg tablet 20 mg PO QHS Qty: 10 0RF Continued loratadine 10 mg tablet 10 mg PO DAILY PRN PRN montelukast [Singulair] 10 mg tablet 10 mg PO DAILY aspirin [Adult Low Dose Aspirin] 81 mg tablet,delayed release (DR/EC) 81 mg PO DAILY albuterol sulfate [ProAir HFA] 90 mcg/actuation HFA aerosol inhaler 2 puff inhalation Q6H PRN Advair HFA 230-21 mcg/actuation HFA aerosol inhaler 1 puff inhalation BID budesonide [Pulmicort] 0.5 mg/2 mL suspension for nebulization 0.25 mg inhalation BID simvastatin 20 mg tablet 20 mg PO QPM ferrous sulfate 325 mg (65 mg iron) Tablet 325 mg PO DAILY sertraline 100 MG tablet 150 mg PO DAILY albuterol sulfate [ProAir HFA] 8.5 GM HFA aerosol inhaler 2 puff Inhalation PRN PRN Incruse Ellipta 62.5 mcg/actuation blister with device 1 inh INHALATION PRN PRN Patient Comments: Inhale 1 puff as directed once a day Discharge Instructions Instructions: Prednisone (By mouth), Azithromycin (By mouth), Cefpodoxime Proxetil (By mouth), How to Stop Smoking (DC), Ear Infection (DC), COPD (Chronic Obstructive Pulmonary Disease) (DC), Prediabetes (DC) Additional Instructions: Finish your antibiotics and prednisone as prescribed. Return to the hospital with any fever, bleeding, chest pain, or worsening shortness of breath. You must stop smoking! Stand Alone Forms: Nursing Discharge Form Referrals: Ernesto Emerson MD [Primary Care Provider] - (Please call Sunday to make a follow up appointment for 1-2 weeks.) Activity:: Activity as Tolerated Equipment/Supplies:: No Equipment Needed Diet:: As Tolerated Discharge Orders Discharge Orders: Discharge Order (Routine); Ordered 07/23/22 Ordered By: Patricia Lagos DS: Summary Time Spent with Patient providing and/or coordinating discharge services: Greater than 30 minutes Status at Discharge Functional status at discharge: independent ambulation Overall status at discharge: patient is progressing back to baseline Mental Status: mental status grossly normal Speech and Movement: speech and movement normal Mood: congruent mood Affect: normal affect Exam Narrative Exam Narrative: General: Pleasant middle-aged male who looks better, A&Ox3, NAD HEENT: EOMI, MMM Cardiovascular: RRR, no m/r/g Lungs: Wheezing on expiration B, improved Gastrointestinal: soft, nontender, nondistended Extremities: very trace pedal pulses, no edema BLEs, no c/c. Psych Mental Status: mental status grossly normal Speech and Movement: speech and movement normal Mood: congruent mood Affect: normal affect DS: Data Vitals/I&O Vitals and I&O: Vital Signs Temperature 36.0 C L 07/23/22 06:50 Temperature Source Tympanic 07/23/22 06:50 Pulse 68 07/23/22 07:20 Pulse Rhythm Regular 07/23/22 06:46 Respiratory Rate 16 07/23/22 07:20 Respiratory Effort Non-Labored 07/23/22 06:46 Respiratory Depth Normal 07/23/22 06:46 Respiratory Pattern Normal 07/23/22 06:46 Blood Pressure 111/60 07/23/22 06:50 Blood Pressure Mean 73 07/22/22 13:14 Blood Pressure Position Sitting 07/22/22 09:11 Pulse Oximetry 93 07/23/22 07:20 Oxygen Delivery Method Room Air 07/23/22 06:50 Oxygen Flow Rate 0 07/23/22 06:50 Pain Level 0 07/23/22 03:18 Intake & Output 07/22/22 07/22/22 07/23/22 11:59 23:59 11:59 Intake Total 100 / 1150 1050 / 1150 500 / 500 Output Total 950 / 950 Balance 100 / 1150 1050 / 1150 -450 / -450 Weight 92.986 kg 94.982 kg 94.2 kg Intake: IV 100 / 1150 1050 / 1150 500 / 500 Output: Urine 950 / 950 Other: Urine Color Yellow Yellow Urine Appearance Clear Clear Comment void x2 Voiding Methods Urinal Data Completed and Pending Completed studies during hospitalization [Text1]: CXR: No acute pulmonary findings. Labs on day of discharge: Labs from last 24 hours 07/23/22 07/23/22 07/23/22 06:30 06:30 06:30 WBC 18.70 H RBC 4.01 L Hgb 12.5 L Hct 37.2 L MCV 93 MCH 31.2 MCHC 33.6 RDW 12.9 Plt Count 204 MPV 10.4 Immature Gran % 0.3 Neutrophils % 79.3 Lymphocytes % 13.5 Monocytes % 6.6 Eosinophils % 0.1 Basophils % 0.2 Nucleated RBC % 0.0 Absolute Neutrophils 14.83 H Absolute Lymphocytes 2.52 Absolute Monocytes 1.23 H Absolute Eosinophils 0.02 Absolute Basophils 0.04 Sodium 146 H Potassium 3.5 Chloride 110 H Carbon Dioxide 25.8 Anion Gap 10.2 BUN 14 Creatinine 1.0 Est GFR (CKD-EPI 2020) 85.10 Glucose 116 H Hemoglobin A1c 6.2 H Calcium 8.5 Magnesium 2.2 Troponin I Procalcitonin Add-On Test Request 07/22/22 07/22/22 07/22/22 13:05 12:47 09:53 WBC RBC Hgb Hct MCV MCH MCHC RDW Plt Count MPV Immature Gran % Neutrophils % Lymphocytes % Monocytes % Eosinophils % Basophils % Nucleated RBC % Absolute Neutrophils Absolute Lymphocytes Absolute Monocytes Absolute Eosinophils Absolute Basophils Sodium Potassium Chloride Carbon Dioxide Anion Gap BUN Creatinine Est GFR (CKD-EPI 2020) Glucose Hemoglobin A1c Calcium Magnesium Troponin I < 50 Procalcitonin < 0.1 Add-On Test Request DONE 07/23/22 06:20 Sputum - Expectorated Sputum Culture - Pending Preliminary micro results at discharge 07/23/22 06:20 Sputum Culture - Pending Sputum - Expectorated PFSH All Active Problems (Updated 07/23/22 @ 10:37 by Patricia Lagos MD) Prediabetes (Acute) Otitis media (Acute) Tobacco abuse (Acute) Discharge planning issues (Acute) DVT prophylaxis (Acute) Acute exacerbation of chronic obstructive pulmonary disease (Acute) Medical History Anemia Atherosclerosis Chest pain COPD (chronic obstructive pulmonary disease) Depression Diabetes Dyspepsia Fatigue Iron deficiency anemia Mass of testicle Sleep apnea Surgical History No significant past surgical history Family History Mother Diabetes Social History Smoking/Tobacco Use Status: Current every day Tobacco Type: cigarettes Smoking packs per day: 1.5 Smoking cigarettes per day: 30.0 Smoking risk assessment performed?: Yes Alcohol Intake: never Drug use: Never Substance use type: does not use Do you feel safe at home: Yes Do you feel safe in your relationship?: Yes Time Spent with Patient Time Spent with Patient: 45-69 minutes Time was spent: preparing to see the patient(eg.review tests), obtaining and/or reviewing separately otained hiistory, ordering medications,tests, procedures, referring, communicating with other health home care chaplain, indepentently interpreting results, counseling the patient and care coordination
--- NOTE | 2022-07-23 12:37 | SMOKENOTE ---
Smoking Cessation Note: ASK Current tobacco use type and amount: Cigarettes, aprx. 1 to 1/2 ppd Years of use: 30+ Pack years: 45 ADVISE Pt advised by Respiratory Therapist to join 802Quits program to help with quitting smoking. ASSESS Stage of readiness (choose one) [ ] Precontemplative (Not ready) [ ] Contemplative (Thinking about making a change) [ x ] Preparation (Ready to set a quit or take action immediately) [ ] Action Stage (New behaviour established) ASSIST Receiving NRT? [ x ] Yes [ ] Refused [ ] Contraindicated Smoking cessation packet [ x ] Given [ ] Refused ARRANGE (choose one) [ x ] Referral made to [employer] [ ] Referral information/registration left for patient [ ] Referral refused Comments: On patient's current admission to hospital for COPD exacerbation, patient was agreeable to placement of nicotine patch. With assistance from Respiratory Therapist (Sha Moran, [employer]), patient cooperation, and patient's significant other, the patient was successfully registered to the 802Quits program during discharge. Program outline and titration plan explained to patient in detail. Patient is agreeable to following the program with a quit date set for 08/20/22. Patient chose NRT of patch and gum combination.
--- NOTE | 2022-07-23 13:41 | INITIAL_ITS ---
- If Service Date Differs Date of service: 07/23/22 Time of Service: 13:41 Care Management Initial Assess REASON FOR HOSPITALIZATION:: Acute exacerbation of COPD. PAST MEDICAL HISTORY/PAST SURGICAL HISTORY:: All Active Problems: Otitis media (Acute), Tobacco abuse (Acute),. Hypoxia (Acute), Discharge planning issues (Acute), DVT prophylaxis (Acute), and Acute exacerbation of chronic obstructive pulmonary disease (Acute). Medical History: Anemia, Atherosclerosis, Chest pain, COPD (chronic obstructive pulmonary disease), Depression, Diabetes, Dyspepsia, Fatigue,. Iron deficiency anemia, Mass of testicle, and Sleep apnea. Surgical History: No significant past surgical history. PREVIOUS FUNCTIONAL STATUS/SOCIAL/FAMILY SUPPORTS:: Jose A lives alone in [place]. He has the support of his sister Patricia who lives locally and his girlfriend Kayla who resides in [place], [place]. Jose A has been unable to work due to health problems and has recently applied for social security. He shares he received his first social security payment in June of this year. Jose A is independent with his ADLs at baseline. CURRENT FUNCTIONAL STATUS:: Jose A is sitting up in bed when comes to meet with him. His girlfriend Kayla is present in the room. He shares he is currently without health insurance but has recently applied for Medicaid. He is unsure of the status of his application at this time. With his verbal agreement, will send a referral to [facility] for assistance with insurance and paying for medications. also provides him with a patient financial assistance application. ADVANCE DIRECTIVES:: None on file; patient accepts a form for completion at a later time. Has patient been provided with info about the portal/API?: Yes Did the patient sign up for the portal?: No CODE STATUS:: Full Code INSURANCE COVERAGE / FINANCIAL ISSUES:: Patient has applied for Medicaid. Status of application is unknown. CURRENT HOME/COMMUNITY SERVICES/EQUIPMENT:: None. PRIMARY CARE PHYSICIAN:: Ernesto Emerson MD. POTENTIAL DISCHARGE NEEDS:: Follow up appointment with PCP. PATIENT/FAMILY EDUCATION NEEDS:: Review of discharge instructions and discussion of [employer]. ANTICIPATED BARRIERS TO DISCHARGE:: None identified at this time. TRANSPORTATION:: Via private vehicle with girlfriend. PLAN:: Jose A will be discharged home with no services when medically cleared by provider. He will follow up with his PCP and plan of care as directed. He will be transported home via private vehicle by his girlfriend when ready. CM will continue to follow.
--- NOTE | 2022-07-23 13:53 | CMDISCH_ITS ---
- If Service Date Differs Date of service: 07/23/22 Time of Service: 13:53 LACE Index Scoring Tool - Questions: Length of Stay (in days): 1 Acuity (Admit via E.D.?): Yes Comorbidities: Chronic Pulmonary Disease E.D. Visits: 1 - Answers: Total Score: 7 Risk of Readmission: Low Risk Care Management Discharge Reason for Hospitalization: Acute exacerbation of COPD. Discharge Plan: Jose A is discharged home with no services. He will follow up with his PCP and plan of care as instructed. He is transported home by his girlfriend via private vehicle. Patient/Family Education Needs: Review of discharge instructions including medi cations and limitations; discuss [employer] and self management.
== END 2022-07-23 12:52 | disposition home or self-care (01) | DRG 192 ==
LOC: ER 12:26 → MS 13:31
PROVIDERS: Admitting Provider Internal Medicine; Emergency Provider Emergency Medicine; PCP Internal Medicine; Visit Provider Internal Medicine
DX: J44.1 Chronic obstructive pulmonary disease with (acute) exacerbation (principal); H66.92 Otitis media, unspecified, left ear; R09.02 Hypoxemia; D50.9 Iron deficiency anemia, unspecified; F32.A Depression, unspecified; R73.03 Prediabetes; F17.210 Nicotine dependence, cigarettes, uncomplicated
CPT/HCPCS: 36415; 80048; 84145; 87637; 93005; 94618; 94640; 96365; 96372; 99285; 99406; J1650; 71046; 83036; 83735; 83880; 84484; 85025; 87070; 87205; 93010; 94664; 94667; 94760; 99223; 99239; J0456; J0696; J2930; J3475; J7512; J7613; J7620; J7626; J7644

== ENCOUNTER 2022-09-06 13:28 | Outpatient (REF) | payer MEDICAID, SELFPAY ==
[2022-09-06 15:56] LABS: Abs Immature Grans 0.02 10^3/uL (0.0-0.06); Absolute Basophil Count 0.05 10^3/uL (0.0-0.2); Absolute Eosinophil Count 0.26 10^3/uL (0.0-0.7); Absolute Monocyte Count 0.62 10^3/uL (0.1-0.8); Absolute Neutrophil Count 5.43 10^3/uL (1.2-6.7); Basophils % 0.6; Eosinophils % 3.2; HGB 13.5 g/dL (13.5-17.5); Immature Grans % 0.2; MCH 31.8 pg (27.0-33.0); MCHC 33.8 % (32.0-36.0); MCV 94 fL (80-95); MPV 10.6 fL (8.0-11.0); Monocytes % 7.7; Neutrophils % 67.3; Platelet Count 253 10^3/uL (130-400); RBC 4.25 10^6/uL (4.36-5.78); RDW 12.7 % (11.8-14.1); RDW-SD 43.9 fL; WBC 8.08 10^3/uL (4.4-10.8)
[2022-09-06 16:11] LABS: ESR 16 mm/hr (0-20)
[2022-09-06 16:44] LABS: ALT 25 U/L (16-63); Albumin 3.6 g/dL (3.4-5.0); Alkaline Phosphatase 89 U/L (46-116); Anion Gap 7.1 mmol/L (3-11); BUN 15 mg/dL (7-18); Bilirubin, Total 0.2 mg/dL (0.2-1.0); CO2 29.9 mmol/L (21.0-32.0); Chloride 105 mmol/L (98-107); Glucose 124 mg/dL (74-106); Potassium 4.4 mmol/L (3.5-5.1); Sodium 142 mmol/L (136-145); Total Protein 7.1 g/dL (6.4-8.2)
[2022-09-06 17:37] LABS: AST 17 U/L (15-37); Calcium 9.4 mg/dL (8.5-10.1)
[2022-09-08 10:19] LABS: Lyme Ab w Rflx to Lyme Confirm Negative (Negative)
[2022-09-10 21:15] LABS: Anaplasma phagocytophilum Negative (Negative); B. miyamotoi PCR Negative (Negative); Babesia divergens/MO-1 Negative (Negative); Babesia duncani Negative (Negative); Babesia microti Negative (Negative); Ehrlichia chaffeensis Negative (Negative); Ehrlichia ewingii/canis Negative (Negative); Ehrlichia muris eauclairensis Negative (Negative)
== END 2022-09-06 13:29 | disposition home or self-care (01) ==
LOC: NCHCN 13:28
PROVIDERS: PCP Internal Medicine; Visit Provider Family Medicine
DX: G56.02 Carpal tunnel syndrome, left upper limb (principal); M25.59 Pain in other specified joint; M79.18 Myalgia, other site; W57.XXXA Bitten or stung by nonvenomous insect and other nonvenomous arthropods, initial encounter
CPT/HCPCS: 80053; 85652; 87798; 85025; 86618

== ENCOUNTER 2022-09-24 17:33 | Emergency (ER) | payer MEDICAID, SELFPAY ==
[2022-09-24 17:38] VITALS: BP 122/63; PULSE 70; RESP 14; TEMP 36.7; O2SAT 96
--- NOTE | 2022-09-24 17:45 | DI.RAD_ITS ---
Exam(s) XR WRIST RT COMPLETE EXAM: XR WRIST RT COMPLETE CLINICAL HISTORY: wrist pain. TECHNIQUE: 2D digital imaging was performed of the right wrist. Three views were obtained. PA, lat eral and oblique views were obtained. COMPARISON: No exams were available for comparison FINDINGS: BONES: No acute fracture is present. No bony destructive lesion is seen. JOINTS: The carpal bones are normally aligned. The joint spaces are well maintained although there do appear to be mild joint space narrowing at the 1st CMC and radiocarpal joints. SOFT TISSUE: There are small short wirelike radiopaque foreign bodies in the soft tissues on the dors um of the distal forearm. IMPRESSION: 1. No acute fracture or dislocation. 2. Nonspecific wirelike foreign objects in the subcutaneous tissues in the dorsal distal forearm. Pl ease correlate clinically/physical exam. DATA REPOSITORY: RADIATION DOSE DELIVERED:
--- NOTE | 2022-09-24 17:45 | DI.RAD_ITS ---
Exam(s) XR WRIST LT COMPLETE EXAM: XR WRIST LT COMPLETE CLINICAL HISTORY: wrist pain. TECHNIQUE: 2D digital imaging was performed of the left wrist. Three images were obtained. PA, obl ique and lateral views were obtained. COMPARISON: No exams were available for comparison FINDINGS: BONES: No acute fracture is present. No bony destructive lesion is seen. JOINTS: The carpal bones are normally aligned. The articular surfaces are well maintained, though the re may be mild narrowing at the 1st CMC joint and the radiocarpal joint. SOFT TISSUE: Normal. IMPRESSION: No acute abnormality. DATA REPOSITORY: RADIATION DOSE DELIVERED:
--- NOTE | 2022-09-24 17:58 | ED.GENADUL_ITS ---
Discharge Plan Disposition Patient Disposition: Home Discharge Details Clinical Impression: Acute carpal tunnel syndrome, Bilateral wrist pain Primary Care Provider: Ernesto Emerson ED Provider: Valdez Kam Home Meds and New Rx's Prescriptions: New gabapentin 300 mg capsule 300 mg PO TID Qty: 90 0RF Continued loratadine 10 mg tablet 10 mg PO DAILY PRN PRN montelukast [Singulair] 10 mg tablet 10 mg PO DAILY aspirin [Adult Low Dose Aspirin] 81 mg tablet,delayed release (DR/EC) 81 mg PO DAILY albuterol sulfate [ProAir HFA] 90 mcg/actuation HFA aerosol inhaler 2 puff inhalation Q6H PRN Advair HFA 230-21 mcg/actuation HFA aerosol inhaler 1 puff inhalation BID budesonide [Pulmicort] 0.5 mg/2 mL suspension for nebulization 0.25 mg inhalation BID simvastatin 20 mg tablet 20 mg PO QPM ferrous sulfate 325 mg (65 mg iron) Tablet 325 mg PO DAILY sertraline 100 MG tablet 150 mg PO DAILY albuterol sulfate [ProAir HFA] 8.5 GM HFA aerosol inhaler 2 puff Inhalation PRN PRN Incruse Ellipta 62.5 mcg/actuation blister with device 1 inh INHALATION PRN PRN Patient Comments: Inhale 1 puff as directed once a day ipratropium-albuterol 0.5 mg-3 mg(2.5 mg base)/3 mL Solution For Nebulization 3 ml UPD Q6H PRN PRN (Reason: shortness of breath or wheezing) Qty: 90 0RF guaifenesin [Mucus Relief ER] 600 mg Tablet Extended Release 12hr 600 mg PO BID PRN PRN (Reason: cough) Qty: 20 0RF nicotine 14 mg/24 hr Patch 24 Hour 14 mg transdermal DAILY PRN PRNQty: 30 0RF prednisone 20 mg Tablet 40 mg PO DAILY Qty: 6 0RF Rx Instructions: next dose tomorrow morning azithromycin 250 mg tablet 250 mg PO QPM Qty: 4 0RF cefpodoxime 200 mg tablet 200 mg PO BID Qty: 8 0RF Rx Instructions: must administer with a meal/food famotidine [Pepcid] 20 mg tablet 20 mg PO QHS Qty: 10 0RF Discharge Instructions Instructions: Paresthesia (ED) Additional Instructions: You were seen in the emergency department for bilateral wrist pain. We p erformed some x-rays that showed some signs of arthritis but were otherwise unremarkable. Continue with all your prior pain regimens. Continue with the doxycycline for possible Lyme disease. I have given you a prescription for gabapentin. You should call the orthopedics office or they will call you for follow-up to consider further interventions for your carpal tunnel syndrome. Return for any worsening symptoms or any loss of function in your hands. Follow-up with your primary care doctor additionally. Referrals: [facility] [Provider Group] - 1 week Discharge Data Discharge Physician: Valdez Kam Medical Decision Making 62-year-old gentleman presents with bilateral wrist pain. I do suspect that this likely represents carpal tunnel syndrome. He already has some wrist splints. Has been taking aspirin for pain as well as ibuprofen. We will give him a dose of Toradol here and some gabapentin to see if this helps with his symptoms. Has not had any formal x-rays of the wrist and we will get x-rays of the wrist to look for any signs of erosive arthritis. He is already taking doxycycline for possible Lyme arthritis. No role for repeating that testing now as he is already on antibiotics and plans to follow-up with his primary care doctor on the . We will send broad labs to look for electrolyte or metabolic derangements that could be contributing to the patient's worsening symptoms. I doubt other cause of the patient's symptoms presently. No signs of infection in the joints are not red or swollen so no role for arthrocentesis at this time. Will await initial testing and response to therapy and reevaluate. Medical Records Medical records reviewed: Yes I reviewed the patient's medical records. Imaging Data Radiologic Study: Attestation: I personally reviewed and interpreted this imaging study as follows: Imaging: X-Ray (left wrist) Radiologist's impression: IMPRESSION: 1. ? Mild degenerative osteoarthritis features. 2. ? No fractures or malalignment. Radiologic Study #2: Attestation: I personally reviewed and interpreted this imaging study as follows: Imaging: X-Ray (right wrist) Radiologist's impression: IMPRESSION: 1. ? Mild degenerative osteoarthritis features. 2. ? No fractures or malalignment. 3. ? No acute soft tissue swelling. Nonspecific small wirelike metallic foreign object within the dorsal lateral subcutaneous tissues of the distal forearm. Lab Data Lab results reviewed: Yes I reviewed the patient's lab results. Labs: Labs unremarkable HPI General Mode of arrival: ambulatory . Date/Time Provider Initiated Documentation: 09/24/22 17:42 . Limitations to Documentation: no limitations . Information obtained by: patient and family . HPI Narrative: This is a 62-year-old male with history of COPD, actively smoking, anemia, depression, diabetes, who presents with bilateral wrist pain. Says this started about 3 weeks ago and has been getting worse. Saw his primary care doctor in [place]. They gave him bilateral wrist splints for suspected carpal tunnel syndrome. He did say it started in the left wrist but now is in the right lower wrist additionally. No neck or back pain. Does have a little bit of left shoulder pain additionally. No fevers or chills. No red or swollen joints. Primarily just complaining of pain in the bilateral wrists. Related Data Home Medications Medication Instructions Recorded Confirmed sertraline 100 mg tablet 150 mg PO DAILY 06/29/13 07/22/22 albuterol sulfate 90 mcg/actuation 2 puff inhalation PRN PRN 06/04/17 02/02/19 aerosol inhaler (ProAir HFA) albuterol sulfate 90 mcg/actuation 2 puff inhalation Q6H PRN 11/19/20 07/22/22 aerosol inhaler (ProAir HFA) aspirin 81 mg tablet,delayed 81 mg PO DAILY 11/19/20 07/22/22 release (Adult Low Dose Aspirin) budesonide 0.5 mg/2 mL suspension 0.25 mg inhalation BID 11/19/20 for nebulization (Pulmicort) fluticasone propionate 230 1 puff inhalation BID 11/19/20 07/22/22 mcg-salmeterol 21 mcg/actuation HFA inhaler (Advair HFA) loratadine 10 mg tablet 10 mg PO DAILY PRN PRN 11/19/20 07/22/22 montelukast 10 mg tablet 10 mg PO DAILY 11/19/20 07/22/22 (Singulair) simvastatin 20 mg tablet 20 mg PO QPM 11/19/20 07/22/22 ferrous sulfate 325 mg (65 mg 325 mg PO DAILY 07/22/22 07/22/22 iron) tablet umeclidinium 62.5 mcg/actuation 1 inh inhalation PRN PRN 07/22/22 07/22/22 blister powder for inhalation (Incruse Ellipta) azithromycin 250 mg tablet 250 mg PO QPM #4 tabs 07/23/22 cefpodoxime 200 mg tablet 200 mg PO BID #8 tabs 07/23/22 famotidine 20 mg tablet (Pepcid) 20 mg PO QHS #10 tabs 07/23/22 guaifenesin 600 mg tablet, 600 mg PO BID PRN PRN cough #20 07/23/22 extended release 12 hr (Mucus tabs Relief ER) ipratropium 0.5 mg-albuterol 3 mg 3 ml UPD Q6H PRN PRN shortness of 07/23/22 (2.5 mg base)/3 mL nebulization breath or wheezing #90 mL soln nicotine 14 mg/24 hr daily 14 mg transdermal DAILY PRN PRN 07/23/22 transdermal patch #30 ea prednisone 20 mg tablet 40 mg PO DAILY #6 tabs 07/23/22 gabapentin 300 mg capsule 300 mg PO TID #90 caps 09/24/22 Previous Rx's Medication Instructions Recorded azithromycin 250 mg tablet 250 mg PO QPM #4 tabs 07/23/22 cefpodoxime 200 mg tablet 200 mg PO BID #8 tabs 07/23/22 famotidine 20 mg tablet (Pepcid) 20 mg PO QHS #10 tabs 07/23/22 guaifenesin 600 mg tablet, 600 mg PO BID PRN PRN cough #20 07/23/22 extended release 12 hr (Mucus tabs Relief ER) ipratropium 0.5 mg-albuterol 3 mg 3 ml UPD Q6H PRN PRN shortness of 07/23/22 (2.5 mg base)/3 mL nebulization breath or wheezing #90 mL soln nicotine 14 mg/24 hr daily 14 mg transdermal DAILY PRN PRN 07/23/22 transdermal patch #30 ea prednisone 20 mg tablet 40 mg PO DAILY #6 tabs 07/23/22 gabapentin 300 mg capsule 300 mg PO TID #90 caps 09/24/22 Allergies Allergy/AdvReac Type Severity Reaction Status Date / Time Penicillins Allergy Unknown Unverified 09/24/22 17:40 General Stated Complaint: Orthopedic KATE: 4 Review of Systems Constitutional Constitutional: Denies chills, Denies fever(s) and Denies headache(s) Eyes Eyes: Denies change in vision ENT Ears, Nose, Mouth, and Throat: Denies headache(s) and Denies odynophagia Cardiovascular Cardiovascular: Denies chest pain and Denies dyspnea Respiratory Respiratory: Denies dyspnea Gastrointestinal Gastrointestinal: Denies abdominal pain, Denies diarrhea, Denies nausea, Denies odynophagia and Denies vomiting Genitourinary Genitourinary: Denies dysuria Musculoskeletal Musculoskeletal: Denies myalgias Comments: bilateral wrist pain Integumentary/Breasts Skin/Breast: Denies changing lesions Neurologic Neurologic: Denies behavioral changes and Denies headache(s) Psychiatric Psychiatric: Denies behavioral changes Endocrine Endocrine: Denies heat intolerance Hematologic/Lymphatic Hematologic/Lymphatic: Denies lymphadenopathy PFSH All Active Problems (Updated 09/24/22 @ 19:03 by Valdez Kam MD) Acute carpal tunnel syndrome (Acute) Bilateral wrist pain (Acute) Prediabetes (Acute) Otitis media (Acute) Tobacco abuse (Acute) Acute exacerbation of chronic obstructive pulmonary disease (Acute) Medical History Anemia Atherosclerosis Chest pain COPD (chronic obstructive pulmonary disease) Depression Diabetes Dyspepsia Fatigue Iron deficiency anemia Mass of testicle Sleep apnea Surgical History No significant past surgical history Family History Mother Diabetes Social History Smoking/Tobacco Use Status: Current every day Tobacco Type: cigarettes Years smoked: 40 Smoking risk assessment performed?: Yes Alcohol Intake: never Drug use: Never Substance use type: does not use Do you feel safe at home: Yes Do you feel safe in your relationship?: Yes Exam Const General: cooperative Nutritional Appearance: average body habitus Orientation: alert, awake and oriented x3 HENMT Head: normal to inspection Ears: external ears normal Mouth: moist mucous membranes Eyes Pupils: PERRL EOM: EOM intact bilaterally and No nystagmus Neck Neck: full ROM and no tracheal deviation Chest Chest: normal inspection of the chest Resp Auscultation: clear to auscultation bilaterally Cardio Rate: regular rate Rhythm: regular rhythm GI Inspection: normal to inspection Palpation: soft, no guarding, not rigid and nontender Back/Spine/Pelvis Back: No no CVA tenderness Thoracic/Lumbar Spine: thoracic and lumbar spine normal to inspection Skin General skin exam: no rashes or lesions noted Neuro General: patient alert, patient awake and patient oriented x3 Cranial Nerves: CN's II-XI intact bilaterally, PERRL and no nystagmus Cognition: normal cognition Motor: muscle tone normal throughout and strength 5/5 throughout Sensory Exam: no sensory deficits noted Extrem Other: Pain with any range of motion of bilateral wrist. Sensation and motor intact in the radial, ulnar, and median nerve distributions. Pain with hyperflexion of bilateral wrists or tapping on the carpal tunnel. Sensation and motor intact in the bilateral upper extremities. No swollen or red joints on the rest of his daxa dy. The wrists are not red or swollen. Course Reevaluation(s) Reevaluation: X-rays with some arthritic changes but otherwise unremarkable. Labs unremarkable. Only minor improvement with Toradol and gabapentin. Will send prescription for gabapentin. I have added him to the follow-up list for o rthopedics given his severe symptoms for suspected carpal tunnel syndrome. He understands to follow-up with them. Patient and family agreement with plan. Will discharge with return precautions. Vital Signs Vital signs: Vital Signs Temperature 36.7 C 09/24/22 17:38 Pulse 70 09/24/22 17:38 Respiratory Rate 14 09/24/22 17:38 Blood Pressure 122/63 09/24/22 17:38 Pulse Oximetry 96 09/24/22 17:38 Temperature 36.7 C 09/24/22 17:38 Temperature Source Oral 09/24/22 17:38 Pulse 70 09/24/22 17:38 Respiratory Rate 14 09/24/22 17:38 Respiratory Effort Normal, Non-Labored 09/24/22 17:43 Blood Pressure 122/63 09/24/22 17:38 Blood Pressure Position Sitting 09/24/22 17:38 Pulse Oximetry 96 09/24/22 17:38 Oxygen Delivery Method Room Air 09/24/22 17:38 Oxygen Flow Rate 0 09/24/22 17:38 Pain Level 10 09/24/22 17:38
[2022-09-24] MEDS: Ketorolac 30 MG/ML VIAL IM (18:04)
[2022-09-24] MEDS: Gabapentin 300 MG CAP PO (18:04)
[2022-09-24 18:14] LABS: Abs Immature Grans 0.02 10^3/uL (0.0-0.06); Absolute Basophil Count 0.07 10^3/uL (0.0-0.2); Absolute Eosinophil Count 0.59 10^3/uL (0.0-0.7); Absolute Lymphocyte Count 2.36 10^3/uL (1.2-3.4); Absolute Monocyte Count 0.87 10^3/uL (0.1-0.8); Absolute Neutrophil Count 6.09 10^3/uL (1.2-6.7); Basophils % 0.7; Eosinophils % 5.9; HCT 40.2 % (40.0-50.0); HGB 13.8 g/dL (13.5-17.5); Immature Grans % 0.2; Lymphocytes % 23.6; MCH 31.6 pg (27.0-33.0); MCHC 34.3 % (32.0-36.0); MCV 92 fL (80-95); MPV 9.6 fL (8.0-11.0); Monocytes % 8.7; Neutrophils % 60.9; Platelet Count 265 10^3/uL (130-400); RBC 4.37 10^6/uL (4.36-5.78); RDW 12.5 % (11.8-14.1); RDW-SD 42.8 fL
[2022-09-24 18:17] LABS: ESR 12 mm/hr (0-20)
--- NOTE | 2022-09-24 18:26 | DI.VRAD_ITS ---
PROCEDURE INFORMATION: Exam: XR Right Wrist Exam date and time: 09/24/2022 6:20 PM Age: 62 years old Clinical indication: Other: Wrist pain TECHNIQUE: Imaging protocol: Radiologic exam of the right wrist. Views: 3 or more views. COMPARISON: No relevant prior studies available. FINDINGS: Bones/joints: There is [id number] degenerative osteoarthritis of the 1st carpometacarpal joint. There is no significant subluxation or malalignment. There is mild narrowing of the radiocarpal joint. Intracarpal joint unremarkable. Carpometacarpal joints are unremarkable. Soft tissues: No acute soft tissue swelling. Dorsal distal forearm small wirelike radiopaque foreign object. This appears to be in the subcutaneous tissues on the lateral view. Recommend clinical correlation. IMPRESSION: 1. Mild degenerative osteoarthritis features. 2. No fractures or malalignment. 3. No acute soft tissue swelling. Nonspecific small wirelike metallic foreign object within the dorsal lateral subcutaneous tissues of the distal forearm. Dictated and Authenticated by: Obie Krueger MD. Ordering:XIN Kellogg MD
--- NOTE | 2022-09-24 18:28 | DI.VRAD_ITS ---
PROCEDURE INFORMATION: Exam: XR Left Wrist Exam date and time: 09/24/2022 6:18 PM Age: 62 years old Clinical indication: Other: Wrist pain TECHNIQUE: Imaging protocol: Radiologic exam of the left wrist. Views: 3 or more views. COMPARISON: No relevant prior studies available. FINDINGS: Bones/joints: Mild osteoarthritic degeneration of the 1st carpometacarpal joint. Slight radial direction subluxation of the 1st metacarpal on the trapezium. Mild narrowing of the radiocarpal joint. No carpal bone dissociation. No acute fractures. Soft tissues: Intact soft tissues. IMPRESSION: 1. Mild degenerative arthritic change. 2. No acute findings. Dictated and Authenticated by: Obie Krueger MD. Ordering:XIN Kellogg MD
[2022-09-24 18:31] LABS: ALT 26 U/L (16-63); AST 20 U/L (15-37); Albumin 3.8 g/dL (3.4-5.0); Alkaline Phosphatase 81 U/L (46-116); Anion Gap 7.5 mmol/L (3-11); BUN 14 mg/dL (7-18); Bilirubin, Total 0.3 mg/dL (0.2-1.0); C-Reactive Protein 0.44 mg/dL (0.0-0.3); CO2 27.5 mmol/L (21.0-32.0); CREATININE 1.1 mg/dL (0.70-1.30); Calcium 9.1 mg/dL (8.5-10.1); Chloride 102 mmol/L (98-107); Glucose 86 mg/dL (74-106); Sodium 137 mmol/L (136-145); Total Protein 7.6 g/dL (6.4-8.2)
[2022-09-24 19:22] VITALS: BP 118/64; PULSE 65; RESP 16; O2SAT 96
== END 2022-09-24 19:24 | disposition home or self-care (01) ==
PROVIDERS: Emergency Provider Student in an Organized Health Care Education/Training Program; PCP Internal Medicine
DX: G56.03 Carpal tunnel syndrome, bilateral upper limbs (principal); M25.531 Pain in right wrist; M25.532 Pain in left wrist
CPT/HCPCS: 36415; 80053; 85652; 96372; 99284; 73110; 85025; 86140; J1885

== ENCOUNTER 2022-11-20 15:59 | Outpatient (REF) | payer MEDICAID, SELFPAY ==
[2022-11-20 18:25] LABS: Abs Immature Grans 0.02 10^3/uL (0.0-0.06); Absolute Basophil Count 0.06 10^3/uL (0.0-0.2); Absolute Eosinophil Count 0.25 10^3/uL (0.0-0.7); Absolute Lymphocyte Count 1.81 10^3/uL (1.2-3.4); Absolute Monocyte Count 0.67 10^3/uL (0.1-0.8); Absolute Neutrophil Count 4.75 10^3/uL (1.2-6.7); Basophils % 0.8; Eosinophils % 3.3; HCT 39.9 % (40.0-50.0); HGB 13.6 g/dL (13.5-17.5); Immature Grans % 0.3; Lymphocytes % 23.9; MCHC 34.1 % (32.0-36.0); MCV 94 fL (80-95); MPV 11.1 fL (8.0-11.0); Monocytes % 8.9; Neutrophils % 62.8; Platelet Count 253 10^3/uL (130-400); RBC 4.25 10^6/uL (4.36-5.78); RDW 12.7 % (11.8-14.1); RDW-SD 43.8 fL; WBC 7.56 10^3/uL (4.4-10.8)
[2022-11-20 19:11] LABS: Ferritin 185 ng/mL (26-388)
[2022-11-20 19:50] LABS: Iron 69 ug/dL (65-175); Total Iron Binding Capacity 289 ug/dL (250-450); Transferrin Sat 24 % (20-55)
== END 2022-11-20 16:00 | disposition home or self-care (01) ==
LOC: NCHCN 15:59
PROVIDERS: PCP Internal Medicine; Visit Provider Nurse Practitioner Family
DX: R53.83 Other fatigue (principal); F17.200 Nicotine dependence, unspecified, uncomplicated; D50.9 Iron deficiency anemia, unspecified; K30 Functional dyspepsia; F32.89 Other specified depressive episodes; J44.1 Chronic obstructive pulmonary disease with (acute) exacerbation
CPT/HCPCS: 82728; 83540; 83550; 85025

== ENCOUNTER 2023-01-03 06:02 | Day surgery (SDC) | payer MEDICAID, SELFPAY ==
[2023-01-03 06:15] VITALS: BP 118/66; PULSE 58; RESP 18; TEMP 36.4; O2SAT 95
--- NOTE | 2023-01-03 06:25 | W.ANESPRE ---
General Info Date of Service Date Performed: 01/03/23 Height: 5 ft 11 in Weight: 99.79 kg Body Mass Index (BMI): 30.7 Surgical Procedure: Operation Date: 01/03/23 07:40 Proposed Procedure Side Surgeon p Wrist ECTR Left Joaquín Darnell MD Meds Allergies and Home Medications Allergies Allergy/AdvReac Type Severity Reaction Status Date / Time Penicillins Allergy Unknown Verified 01/03/23 06:29 Home Medication Medication Instructions Recorded sertraline 100 mg tablet 150 mg PO DAILY 06/29/13 albuterol sulfate 90 mcg/actuation 2 puff inhalation Q6H PRN 11/19/20 aerosol inhaler (ProAir HFA) aspirin 81 mg tablet,delayed 81 mg PO DAILY 11/19/20 release (Adult Low Dose Aspirin) fluticasone propionate 230 1 puff inhalation BID 11/19/20 mcg-salmeterol 21 mcg/actuation HFA inhaler (Advair HFA) loratadine 10 mg tablet 10 mg PO DAILY PRN PRN 11/19/20 montelukast 10 mg tablet 10 mg PO DAILY 11/19/20 (Singulair) simvastatin 20 mg tablet 20 mg PO QPM 11/19/20 ferrous sulfate 325 mg (65 mg 325 mg PO DAILY 07/22/22 iron) tablet umeclidinium 62.5 mcg/actuation 1 inh inhalation PRN PRN 07/22/22 blister powder for inhalation (Incruse Ellipta) famotidine 20 mg tablet (Pepcid) 20 mg PO QHS #10 tabs 07/23/22 guaifenesin 600 mg tablet, 600 mg PO BID PRN PRN cough #20 07/23/22 extended release 12 hr (Mucus tabs Relief ER) ipratropium 0.5 mg-albuterol 3 mg 3 ml UPD Q6H PRN PRN shortness of 07/23/22 (2.5 mg base)/3 mL nebulization breath or wheezing #90 mL soln gabapentin 300 mg capsule 300 mg PO TID #90 caps 09/24/22 prednisone 10 mg tablet 10 mg PO DIRECTED 11/30/22 fluticasone fur. 100 mcg-umeclid 1 inh inhalation DAILY 01/03/23 62.5 mcg-vilant 25 mcg inhalat.powder (Trelegy Ellipta) Current Visit Medications: Current Medications Generic Name Dose Route Start Last Admin Trade Name Latasha PRN Reason Stop Dose Admin Ringer's Solution 1,000 mls @ 80 mls/hr 01/03/23 06:00 IV 02/01/23 23:59 INFUSION TEENA Cefazolin Sodium/Dextrose 2 gm in 50 mls @ 100 mls/hr 01/03/23 06:00 Ancef Duplex IVPB 01/03/23 16:00 PREOP TEENA IV Miscellaneous Supplies 1 each 01/03/23 06:00 Iv Access IV 02/01/23 23:59 DIRECTED TEENA Sodium Chloride 0 ml 01/03/23 06:00 Normal Saline Flush 10 Ml Syr IV 02/01/23 23:59 PRN PRN Sodium Chloride 0 ml 01/03/23 06:00 Normal Saline 10 Ml Vial IJ 02/01/23 23:59 DIRECTED PRN Sterile Water 0 ml 01/03/23 06:00 Water,Injection,Sterile 10 Ml Vial IJ 02/01/23 23:59 DIRECTED PRN PFSH Active Problems Active Problems: Problem Status Onset Code Acute exacerbation of chronic obstructive pulmonary disease J44.1 Tobacco abuse Z72.0 Otitis media H66.90 Prediabetes R73.03 Bilateral carpal tunnel syndrome G56.03 Medical History Medical History Anemia Arthralgia Atherosclerosis Bitten or stung by nonvenomous insect and other nonvenomous arthropods, initial encounter Chest pain Pt. states it's related to his COPD, not his heart, its more his lungs COPD (chronic obstructive pulmonary disease) Depression Diabetes Dyspepsia Fatigue Iron deficiency anemia Mass of testicle Obese Olecranon bursitis, left elbow Pulmonary nodule Sleep apnea Surgical History Surgical History No significant past surgical history Tobacco Smoking/Tobacco Use Status: Current every day Tobacco Type: cigarettes Years smoked: 40 Alcohol Alcohol Intake: never Substance Use Substance use: Never Substance use type: does not use Vital Signs and Lab Results Vital Signs Most Recent Vital Signs in EMR: Temp Pulse Resp BP Pulse Ox 36.4 C L 58 L 18 118/66 95 01/03/23 06:15 01/03/23 06:15 01/03/23 06:15 01/03/23 06:15 01/03/23 06:15 Lab Results Blood Type / Crossmatch: No Data to Display Complete Blood Count: No Data to Display Complete Metabolic Panel: No Data to Display Liver Function Panel: No Data to Display Coagulation Panel: No Data to Display Cardiac Panel: No Data to Display Arterial Blood Gas: No Data to Display Venous Blood Gas: No Data to Display Pancreas Panel: No Data to Display Thyroid Panel: No Data to Display Infectious Disease: No Data to Display Blood Cultures: No Data to Display Toxicology Panel: No Data to Display Imaging and Studies Imaging and Studies Study information below may be from another EMR and interpreted by another provider. Please see original notes in EMR for more complete details. EKG Summary: 08/13: sinus rhythm. Anesthesia Assessment and Plan Anesthesia History Personal History: No History of Anesthesia Complications Family History: No Family History of Anesthesia Complications Exercise Tolerance Exercise Tolerance: Metabolic Equivalents>4 Cardiac & Pulmonary Exam Cardiac Exam: Normal S1/S2 Heart Sounds Pulmonary Exam: Clear Bilateral Breath Sounds Implantable Cardiac Device Does patient have a Pacemaker or an ICD?: No Airway Exam Known Difficult Airway: No Mallampati Class: 3 Mouth Opening: Normal (> 3cm) Thyromental Distance: Less than 3 cm Neck Range of Motion: Limited ROM Neck Circumference: Normal Teeth Condition: Edentulous ASA Classification ASA Score: ASA 2 Emergency Case?: No NPO Status NPO Status: NPO Clears >2 hours, Solids >8 hours Anesthesia Plan Resuscitation Status: Full Code Anesthesia Technique: General Anesthesia Airway Planned: Natural Airway Monitors Used: Standard Monitors Preoperative Comments:: 62 yo male for ECTR. Sig PMHx: COPD (recently started on trelegy, rare rescue albuterol use), pulmonary nodule, DM (a1c 6, not on medications), depression, smoker.
[2023-01-03] MEDS: Lactated Ringers 1,000 ML 80 ML IV (06:50)
[2023-01-03 06:56] VITALS: BMI 30.7
--- NOTE | 2023-01-03 07:18 | PDOC.DSDIS_ITS ---
Date of service: 01/03/23 Time of Service: 07:18 Discharge Plan Disposition Patient Disposition: Home Condition: Good Discharge Details Reason For Visit: L ECTR Attending Provider: Joaquín Darnell Primary Care Provider: Diane Shore Home Meds and New Rx's Prescriptions: New acetaminophen 500 mg tablet 1,000 mg PO TID Qty: 90 0RF ibuprofen 600 mg tablet 600 mg PO TID PRN (Reason: pain) Qty: 90 0RF hydrocodone-acetaminophen 5-325 mg tablet 1 tab PO Q6H PRN (Reason: pain) Qty: 6 0RF Continued loratadine 10 mg tablet 10 mg PO DAILY PRN PRN montelukast [Singulair] 10 mg tablet 10 mg PO DAILY aspirin [Adult Low Dose Aspirin] 81 mg tablet,delayed release (DR/EC) 81 mg PO DAILY albuterol sulfate [ProAir HFA] 90 mcg/actuation HFA aerosol inhaler 2 puff inhalation Q6H PRN fluticasone propion-salmeterol [Advair HFA] 230-21 mcg/actuation HFA aerosol inhaler 1 puff inhalation BID simvastatin 20 mg tablet 20 mg PO QPM ferrous sulfate 325 mg (65 mg iron) Tablet 325 mg PO DAILY prednisone 10 mg tablet 10 mg PO DIRECTED Rx Instructions: see taper instructions sertraline 100 MG tablet 150 mg PO DAILY Incruse Ellipta 62.5 mcg/actuation blister with device 1 inh INHALATION PRN PRN Patient Comments: Inhale 1 puff as directed once a day ipratropium-albuterol 0.5 mg-3 mg(2.5 mg base)/3 mL Solution For Nebulization 3 ml UPD Q6H PRN PRN (Reason: shortness of breath or wheezing) Qty: 90 0RF guaifenesin [Mucus Relief ER] 600 mg Tablet Extended Release 12hr 600 mg PO BID PRN PRN (Reason: cough) Qty: 20 0RF famotidine [Pepcid] 20 mg tablet 20 mg PO QHS Qty: 10 0RF gabapentin 300 mg capsule 300 mg PO TID Qty: 90 0RF Trelegy Ellipta 100-62.5-25 mcg Blister With Device 1 inh INHALATION DAILY Discharge Instructions Stand Alone Forms: Carie Escobedo Tunnel Release Referrals: Joaquín Darnell MD [ [facility] STAFF PHYSICIAN] - Activity:: Activity as Tolerated Remove Dressings/Wound Care:: 48 hours Shower/Bathe:: 48 hours Diet:: As Tolerated Discharge Orders Discharge Orders: Discharge Order (Routine); Ordered 01/03/23 Ordered By: Jose A Trinh DS: Diagnosis Discharge Diagnosis (1) Bilateral carpal tunnel syndrome: Status: Acute
[2023-01-03] MEDS: ceFAZolin 2 GM/50 ML BAG IVPB (07:20)
[2023-01-03] MEDS: Lidocaine 1% Pres-Free W/EPI 1/200,000 10 ML VIAL (07:24)
--- NOTE | 2023-01-03 07:39 | ROE_ITS ---
Date of service: 01/03/23 Time of Service: 07:39 Operative Note Operative Note PRE-OP DIAGNOSIS: Left Carpal Tunnel Syndrome POST-OP DIAGNOSIS: same PROCEDURE: Left Endoscopic Carpal Tunnel Release SURGEON: Joaquín Darnell ANESTHESIA TYPE: General:No Airway Refer to Anesthesia Record ESTIMATED BLOOD LOSS: 0 PATHOLOGY: none sent TOURNIQUET TIME: 7 COMPLICATIONS: None Patient was transported to: same day Patient's condition: stable Indications: I have seen Viviana in clinic for symptoms of carpal tunnel syndrome. The numbness, tingling, and pain limited function. Clinical exam findings confirmed the diagnosis of carpal tunnel syndrome. Nonoperative measures such as bracing, time, activity modifications had been tried but disability and pain persisted. I discussed carpal tunnel release with the patient. I reviewed the risks of the procedure to include, but not limited to, bleeding, infection, pain, stiffness, incomplete release, damage to nerves or vessels, persistent numbness, recurrence. Despite these risks, the patient elected to proceed. Findings: There was tightened carpal tunnel and a very thick transverse carpal ligament. This was dilated and released successfully with the endoscopic with increased space within the tunnel. The antebrachial fascia was released proximally freeing the median nerve at the wrist. Procedure Description: Viviana was greeted in the preoperative holding area where the correct side was identified and marked. The consent was reviewed with the patient and signed. The history and physical was updated. All questions were answered. He was taken back to the operating room. The patient was placed into the supine position on the operating room table with the left arm on an arm board. A nonsterile tourniquet was placed high onto the arm. All bony prominences were well padded. Prophylactic antibiotics in the form of Cefazolin were administered. The left arm was then prepped with Chloraprep and draped in a standard fashion with stockinette and extremity drape. A timeout to confirm co rrect identity, side and site, procedure, allergies, anesthesia, and medical concerns was performed. The surgical site was marked in the volar wrist creases in line with the radial border of the fourth ray. This area was anesthetized with approximately 6cc of 1% Lidocaine. The limb was then exsanguinated with an Esmarch. The skin was incised with a 15 blade, approximately 1cm. The skin only was cut and the deeper tissue was dissected bluntly with a tenotomy scissor, avoiding passing nerve and venous structures. The fascia was penetrated and opened bluntly. A two-prong skin hook was placed under this proximal fascial edge. A series of hamate finders were used to identify and dilate the carpal tunnel. Synovial elevator was used to free synovial attachments to the underside of the tr ansverse carpal ligament. My thumb was kept in the palm to viviana the distal extent of the carpal tunnel and correctly position the hand. The Microaire endoscope was inserted without difficulty and without resistance. Excellent visualization showed horizontally running fibers of the transverse carpal ligament (TCL). The distal extent of the TCL was visualized and the end of the scope palpated with the thumb. The blade was elevated and withdrawn from distal to proximal. It took multiple passes to get through the entire thickness of the transverse carpal ligament. It was quite thick and quite dense. With each pass I would advance the scope into the defect to fully release those fibers. Eventually, the TCL was split into two flaps. The endoscope was reinserted to confirm complete release and any remnant ligament was incised. The scope was withdrawn and the proximal aspect of the carpal tunnel was grossly inspected and appeared release with the median nerve visible. The antebrachial fascia at the level of the wrist was then freed from the overlying skin and then the underlying median nerve with blunt dissection. This was transected longitudinally for about 3cm proximal to the wrist incision. The wound was then irrigated with easy flow of irrigant distally and proximally. The incision was closed with a single 4-0 Nylon suture. The wound was dressed with Xeroform, Gauze, Kerlix and Florencio. The tourniquet was deflated with the initial dressing and held with some pressure. Blood flow returned easily to all digits with capillary refill less than 2 seconds. The patient tolerated the procedure well and was returned to the Same Day Surgery area in a stable condition suffering no known complication.
[2023-01-03 07:40] VITALS: BP 132/116; PULSE 57; RESP 16; TEMP 36.4; O2SAT 96
[2023-01-03 08:00] VITALS: BP 135/73; PULSE 53; RESP 16; TEMP 36.5; O2SAT 96
--- NOTE | 2023-01-03 08:28 | W.ANESPOSTOP ---
Postoperative Evaluation Date, Time and Location Date Performed: 01/03/23 Time Performed: 08:00 Patient Location: Day Surgery Unit Vital Signs Most Recent Imported Vital Signs: Most Recent Vital Signs Temp Pulse Resp BP Pulse Ox 36.5 C 53 L 16 135/73 96 01/03/23 08:00 01/03/23 08:00 01/03/23 08:00 01/03/23 08:00 01/03/23 08:00 Pain Score Most Recent Pain Score: Most Recent Pain Score Pain Level 0 01/03/23 08:00 Assessment Mental Status: Awake (Alert & Oriented to Patient Baseline) Airway and Respiratory Function: Patent airway with normal (patient baseline) respiratory exam Cardiovascular Function: Hemodynamically Stable Hydration Status: Adequately Hydrated Nausea & Vomiting: No Nausea or Vomiting Pain: Pt. Denies Any Pain Peripheral Nerve Block: Patient did not receive a nerve block
== END 2023-01-03 08:35 | disposition home or self-care (01) ==
PROVIDERS: PCP Nurse Practitioner Family; Visit Provider Student in an Organized Health Care Education/Training Program
PROC: 01N54ZZ Release Median Nerve, Percutaneous Endoscopic Approach (ICD-10-PCS; CPT 29848; principal; 2023-01-03 07:30)
DX: G56.02 Carpal tunnel syndrome, left upper limb (principal); G56.03 Carpal tunnel syndrome, bilateral upper limbs
CPT/HCPCS: 29848; J0690; J1885; J2704

== ENCOUNTER → 2023-01-11 02:20 | Outpatient (CLI) | payer MEDICAID, SELFPAY ==
--- NOTE | 2023-01-11 08:30 | DI.CTLCSR_ITS ---
Exam(s) CT CHEST LUNG CANCER SCREEN EXAM: CT CHEST LUNG CANCER SCREEN CLINICAL HISTORY: Screening for lung cancer,smoker, z72.0 TECHNIQUE: Imaging Protocol: Axial computed tomography images with coronal and sagittal reformatted images were created and reviewed COMPARISON: CT CT CHEST LUNG CANCER SCREEN from 11/16/2020 FINDINGS: Tracheobronchial tree: Patent where visualized. Pulmonary parenchyma: No consolidation or dominant measurable mass. No architectural distortion. Lung Nodules: There is a stable 3 mm nodule in the right upper lobe. Mediastinum and Estelle: No dominant adenopathy or fluid collection. The esophagus is unremarkable. Thyroid gland: Unremarkable. Lymph nodes: Unremarkable. Pleura: No effusion or pneumothorax. Heart: The heart is not dilated. Mild 1 vessel coronary artery calcification. No pericardial effusio n. Aorta: Thoracic aorta non-dilated.Atherosclerosis. Upper abdomen: Unremarkable. Soft Tissues: Unremarkable. Bones: Within normal limits. IMPRESSION: Stable 3 mm pulmonary nodule. Lung RADS Cat 2 - Benign Appearance / Behavior: Nodules with a very low likelihood of becoming a clin ically active cancer due to size or lack of growth Lung-RADS 1.0 CATEGORIES: Category 0 - Prior chest CT exam(s) being located for comparison. Category 1 - Annual screening in 12 months. No nodules or definitely benign nodules. Category 2 - Annual screening in 12 months. Benign appearance. Nodules with low likelihood of becomin g active cancer. Category 3 - 6-month follow-up. Probably benign. Short-term follow-up suggested. Nodules with low lik elihood of becoming active cancer. Category 4A - 3-month follow-up and CT/PET if >8 mm in size. Suspicious finding. Findings which requi re additional testing. Category 4B - Findings which require additional testing and tissue sampling. Suspicious finding. Category 4X - Category 3 or 4 nodules with additional features or imaging findings that increases the suspicion of malignancy. Modifier S- Potentially clinically significant finding. (Non lung cancer) RADIATION DOSE DELIVERED: 88.25mGy.cm Total DLP 88.25mGy.cmTotal DLP DATA REPOSITORY: All CT scans at this facility are submitted to the National Radiology Data Registry (NRDR) Dose Index Registry (DIR) with the [employer] (A[employer]). RADIATION OPTIMIZATION: All CT scans at this facility use at least one of these dose optimization te chniques: automated exposure control; mA and/or kV adjustment per patient size (includes targeted exa ms where dose is matched to clinical indication); or iterative reconstruction.
== END ==
PROVIDERS: PCP Nurse Practitioner Family; Visit Provider Physician Assistant Surgical
DX: F17.210 Nicotine dependence, cigarettes, uncomplicated (principal); Z12.2 Encounter for screening for malignant neoplasm of respiratory organs; R91.1 Solitary pulmonary nodule
CPT/HCPCS: 71271

== ENCOUNTER 2023-02-07 10:25 | Day surgery (SDC) | payer MEDICAID, SELFPAY ==
[2023-02-07 10:27] VITALS: BP 126/68; PULSE 60; RESP 18; TEMP 36.1; O2SAT 96
--- NOTE | 2023-02-07 10:35 | W.ANESPRE ---
General Info Date of Service Date Performed: 02/07/23 Height: 5 ft 11 in Weight: 99.79 kg Body Mass Index (BMI): 30.7 Surgical Procedure: Operation Date: 02/07/23 13:40 Proposed Procedure Side Surgeon p Wrist ECTR Right Joaquín Darnell MD Meds Allergies and Home Medications Allergies Allergy/AdvReac Type Severity Reaction Status Date / Time Penicillins Allergy Unknown Verified 02/07/23 11:03 adhesive tape AdvReac Intermediate rash Verified 02/07/23 11:03 Home Medication Medication Instructions Recorded sertraline 100 mg tablet 150 mg PO DAILY 06/29/13 albuterol sulfate 90 mcg/actuation 2 puff inhalation Q6H PRN 11/19/20 aerosol inhaler (ProAir HFA) aspirin 81 mg tablet,delayed 81 mg PO DAILY 11/19/20 release (Adult Low Dose Aspirin) fluticasone propionate 230 1 puff inhalation BID 11/19/20 mcg-salmeterol 21 mcg/actuation HFA inhaler (Advair HFA) loratadine 10 mg tablet 10 mg PO DAILY PRN PRN 11/19/20 montelukast 10 mg tablet 10 mg PO DAILY 11/19/20 (Singulair) simvastatin 20 mg tablet 20 mg PO QPM 11/19/20 ferrous sulfate 325 mg (65 mg 325 mg PO DAILY 07/22/22 iron) tablet umeclidinium 62.5 mcg/actuation 1 inh inhalation PRN PRN 07/22/22 blister powder for inhalation (Incruse Ellipta) famotidine 20 mg tablet (Pepcid) 20 mg PO QHS #10 tabs 07/23/22 guaifenesin 600 mg tablet, 600 mg PO BID PRN PRN cough #20 07/23/22 extended release 12 hr (Mucus tabs Relief ER) ipratropium 0.5 mg-albuterol 3 mg 3 ml UPD Q6H PRN PRN shortness of 07/23/22 (2.5 mg base)/3 mL nebulization breath or wheezing #90 mL soln gabapentin 300 mg capsule 300 mg PO TID #90 caps 09/24/22 acetaminophen 500 mg tablet 1,000 mg (2 x 500 mg) PO TID #90 01/03/23 tabs fluticasone fur. 100 mcg-umeclid 1 inh inhalation DAILY 01/03/23 62.5 mcg-vilant 25 mcg inhalat.powder (Trelegy Ellipta) hydrocodone 5 mg-acetaminophen 325 1 tab PO Q6H PRN pain #6 tabs 01/03/23 mg tablet ibuprofen 600 mg tablet 600 mg PO TID PRN pain #90 tabs 01/03/23 Current Visit Medications: Current Medications Generic Name Dose Route Start Last Admin Trade Name Freq PRN Reason Stop Dose Admin Ringer's Solution 1,000 mls @ 80 mls/hr 02/07/23 06:00 IV 03/08/23 23:59 INFUSION TEENA Cefazolin Sodium/Dextrose 2 gm in 50 mls @ 100 mls/hr 02/07/23 06:00 Ancef Duplex IVPB 03/08/23 23:59 PREOP TEENA IV Miscellaneous Supplies 1 each 02/07/23 06:00 Iv Access IV 03/08/23 23:59 DIRECTED TEENA Sodium Chloride 0 ml 02/07/23 06:00 Normal Saline Flush 10 Ml Syr IV 03/08/23 23:59 PRN PRN Sodium Chloride 0 ml 02/07/23 06:00 Normal Saline 10 Ml Vial IJ 03/08/23 23:59 DIRECTED PRN Sterile Water 0 ml 02/07/23 06:00 Water,Injection,Sterile 10 Ml Vial IJ 03/08/23 23:59 DIRECTED PRN PFSH Active Problems Active Problems: Problem Status Onset Code Acute exacerbation of chronic obstructive pulmonary disease J44.1 Tobacco abuse Z72.0 Otitis media H66.90 Prediabetes R73.03 Bilateral carpal tunnel syndrome G56.03 Medical History Medical History Obese Pulmonary nodule Olecranon bursitis, left elbow Bitten or stung by nonvenomous insect and other nonvenomous arthropods, initial encounter Arthralgia Iron deficiency anemia Mass of testicle Diabetes Anemia Sleep apnea Fatigue Chest pain Pt. states it's related to his COPD, not his heart, its more his lungs Dyspepsia Atherosclerosis Depression COPD (chronic obstructive pulmonary disease) Surgical History Surgical History No significant past surgical history Tobacco Smoking/Tobacco Use Status: Current every day Tobacco Type: cigarettes Years smoked: 40 Alcohol Alcohol Intake: never Substance Use Substance use: Never Substance use type: does not use Vital Signs and Lab Results Vital Signs Most Recent Vital Signs in EMR: Temp Pulse Resp BP Pulse Ox 36.1 C L 60 18 126/68 96 02/07/23 10:27 02/07/23 10:27 02/07/23 10:27 02/07/23 10:27 02/07/23 10:27 Lab Results Blood Type / Crossmatch: No Data to Display Complete Blood Count: No Data to Display Complete Metabolic Panel: No Data to Display Liver Function Panel: No Data to Display Coagulation Panel: No Data to Display Cardiac Panel: No Data to Display Arterial Blood Gas: No Data to Display Venous Blood Gas: No Data to Display Pancreas Panel: No Data to Display Thyroid Panel: No Data to Display Infectious Disease: No Data to Display Blood Cultures: No Data to Display Toxicology Panel: No Data to Display Imaging and Studies Imaging and Studies Study information below may be from another EMR and interpreted by another provider. Please see original notes in EMR for more complete details. EKG Summary: 08/13: sinus rhythm. Anesthesia Assessment and Plan Anesthesia History Personal History: No History of Anesthesia Complications Family History: No Family History of Anesthesia Complications Exercise Tolerance Exercise Tolerance: Metabolic Equivalents>4 Cardiac & Pulmonary Exam Cardiac Exam: Normal S1/S2 Heart Sounds Pulmonary Exam: Clear Bilateral Breath Sounds Implantable Cardiac Device Does patient have a Pacemaker or an ICD?: No Airway Exam Known Difficult Airway: No Mallampati Class: 3 Mouth Opening: Normal (> 3cm) Thyromental Distance: Less than 3 cm Neck Range of Motion: Limited ROM Neck Circumference: Normal Teeth Condition: Edentulous ASA Classification ASA Score: ASA 2 Emergency Case?: No NPO Status NPO Status: NPO Clears >2 hours, Solids >8 hours Anesthesia Plan Resuscitation Status: Full Code Anesthesia Technique: General Anesthesia Airway Planned: Natural Airway Monitors Used: Standard Monitors Preoperative Comments:: 62 yo male for ECTR. Denies any health history changes since his last time with us. Sig PMHx: COPD (recently started on trelegy, rare rescue albuterol use), pulmonary nodule, DM (a1c 6, not on medications), depression, smoker. Previous Anes: - ECTR, ketamine, prop, natural airway, no issues.
[2023-02-07 11:06] VITALS: BMI 30.7
[2023-02-07] MEDS: Lactated Ringers 1,000 ML 80 ML IV (11:12)
[2023-02-07] MEDS: Lidocaine 1.5 % Pres-Free W/EPI 1/200,000 30 ML VIAL (12:44)
--- NOTE | 2023-02-07 12:48 | W.PM.DSUDISC ---
Date of service: 02/07/23 Time of Service: 12:49 Discharge Plan Disposition Patient Disposition: Home Condition: Good Discharge Details Reason For Visit: Right Carpal Tunnel Syndrome Attending Provider: Joaquín Darnell Primary Care Provider: Diane Shore Home Meds and New Rx's Prescriptions: Continued loratadine 10 mg tablet 10 mg PO DAILY PRN PRN montelukast [Singulair] 10 mg tablet 10 mg PO DAILY aspirin [Adult Low Dose Aspirin] 81 mg tablet,delayed release (DR/EC) 81 mg PO DAILY albuterol sulfate [ProAir HFA] 90 mcg/actuation HFA aerosol inhaler 2 puff inhalation Q6H PRN fluticasone propion-salmeterol [Advair HFA] 230-21 mcg/actuation HFA aerosol inhaler 1 puff inhalation BID simvastatin 20 mg tablet 20 mg PO QPM ferrous sulfate 325 mg (65 mg iron) Tablet 325 mg PO DAILY sertraline 100 MG tablet 150 mg PO DAILY Incruse Ellipta 62.5 mcg/actuation blister with device 1 inh INHALATION PRN PRN Patient Comments: Inhale 1 puff as directed once a day ipratropium-albuterol 0.5 mg-3 mg(2.5 mg base)/3 mL Solution For Nebulization 3 ml UPD Q6H PRN PRN (Reason: shortness of breath or wheezing) Qty: 90 0RF guaifenesin [Mucus Relief ER] 600 mg Tablet Extended Release 12hr 600 mg PO BID PRN PRN (Reason: cough) Qty: 20 0RF famotidine [Pepcid] 20 mg tablet 20 mg PO QHS Qty: 10 0RF gabapentin 300 mg capsule 300 mg PO TID Qty: 90 0RF Trelegy Ellipta 100-62.5-25 mcg Blister With Device 1 inh INHALATION DAILY acetaminophen 500 mg tablet 1,000 mg PO TID Qty: 90 0RF ibuprofen 600 mg tablet 600 mg PO TID PRN (Reason: pain) Qty: 90 0RF hydrocodone-acetaminophen 5-325 mg tablet 1 tab PO Q6H PRN (Reason: pain) Qty: 6 0RF Discharge Instructions Stand Alone Forms: Carie Escobedo Tunnel Release Referrals: Joaquín Darnell MD [ [facility] STAFF PHYSICIAN] - Activity:: Elevate Remove Dressings/Wound Care:: 48 hours Shower/Bathe:: 48 hours Diet:: As Tolerated Discharge Orders Discharge Orders: Discharge Order (Routine); Ordered 02/07/23 Ordered By: Joaquín Darnell DS: Diagnosis Discharge Diagnosis (1) Bilateral carpal tunnel syndrome: Status: Acute
--- NOTE | 2023-02-07 12:51 | ROE_ITS ---
Date of service: 02/07/23 Time of Service: 12:40 Operative Note Operative Note DATE OF PROCEDURE: 02/07/23 PRE-OP DIAGNOSIS: Right Carpal Tunnel Syndrome POST-OP DIAGNOSIS: same PROCEDURE: Right Endoscopic Carpal Tunnel Release SURGEON: Joaquín Darnell ANESTHESIA TYPE: General:No Airway Refer to Anesthesia Record ESTIMATED BLOOD LOSS: 0 PATHOLOGY: none sent TOURNIQUET TIME: 4 COMPLICATIONS: None Patient was transported to: same day Patient's condition: stable Indications: I have seen Viviana in clinic for symptoms of carpal tunnel syndrome. The numbness, tingling, and pain limited function. Clinical exam findings confirmed the diagnosis of carpal tunnel syndrome. Nonoperative measures such as bracing, time, activity modifications had been tried but disability and pain persisted. He underwent a left carpal tunnel release with unfortunately not overwhelming symptom improvement. He still reports some numbness although the painful burning and tingling seems to be better. He has also since developed a rash about the left wrist. Nevertheless, he still desires to proceed with a right carpal tunnel release. Once again, I discussed carpal tunnel release with the patient. I reviewed the risks of the procedure to include, but not limited to, bleeding, infection, pain, stiffness, incomplete release, damage to nerves or vessels, persistent numbness, recurrence. Despite these risks, the patient elected to proceed. Findings: There was tightened carpal tunnel. This was dilated and released successfully with the endoscopic with increased space within the tunnel. The antebrachial fascia was released proximally freeing the median nerve at the wrist. Procedure Description: Viviana was greeted in the preoperative holding area where the correct side was identified and marked. The consent was reviewed with the patient and signed. The history and physical was updated. All questions were answered. Viviana was taken back to the operating room. The patient was placed into the supine position on the operating room table with the right arm on an arm board. A nonsterile tourniquet was placed high onto the arm. All bony prominences were well padded. Prophylactic antibiotics in the form of Cefazolin were administered. The right arm was then prepped with Chloraprep and draped in a standard fashion with stockinette and extremity drape. A timeout to confirm correct identity, side and site, procedure, allergies, anesthesia, and medical concerns was performed. The surgical site was marked in the volar wrist creases in line with the radial border of the fourth ray. This area was anesthetized with approximately 6cc of 1% Lidocaine. The limb was then exsanguinated with an Esmarch. The skin was incised with a 15 blade, approximately 1cm. The skin only was cut and the deeper tissue was dissected bluntly with a tenotomy scissor, avoiding passing nerve and venous structures. The fascia was penetrated and opened bluntly. A two-prong skin hook was placed under this proximal fascial edge. A series of hamate finders were used to identify and dilate the carpal tunnel. Synovial elevator was used to free synovial attachments to the underside of the transverse carpal ligament. My thumb was kept in the palm to viviana the distal extent of the carpal tunnel and correctly position the hand. The Microaire endoscope was inserted without difficulty and without resistance. Excellent visualization showed horizontally running fibers of the transverse carpal ligament (TCL). The distal extent of the TCL was visualized and the end of the scope palpated with the thumb. The blade was elevated and withdrawn from distal to proximal. The TCL was split into two flaps. The endoscope was reinserted to confirm complete release and any remnant ligament was incised. The scope was withdrawn and the proximal aspect of the carpal tunnel was grossly inspected and appeared release with the median nerve visible. The antebrachial fascia at the level of the wrist was then freed from the over lying skin and then the underlying median nerve with blunt dissection. This was transected longitudinally for about 3cm proximal to the wrist incision. The wound was then irrigated with easy flow of irrigant distally and proximally. The incision was closed with a single 4-0 Nylon suture. The wound was dressed with Xeroform, Gauze, Kerlix and Florencio. The tourniquet was deflated with the initial dressing and held with some pressure. Blood flow returned easily to all digits with capillary refill less than 2 seconds. The patient tolerated the procedure well and was returned to the Same Day Surgery area in a stable condition suffering no known complication.
[2023-02-07 12:56] VITALS: BP 129/50; PULSE 60; RESP 18; TEMP 36.3; O2SAT 95
--- NOTE | 2023-02-07 13:05 | W.ANESPOSTOP ---
Postoperative Evaluation Date, Time and Location Date Performed: 02/07/23 Time Performed: 13:05 Patient Location: Day Surgery Unit Vital Signs Most Recent Imported Vital Signs: Most Recent Vital Signs Temp Pulse Resp BP Pulse Ox 36.3 C L 60 18 129/50 L 95 02/07/23 12:56 02/07/23 12:56 02/07/23 12:56 02/07/23 12:56 02/07/23 12:56 Pain Score Most Recent Pain Score: Most Recent Pain Score Pain Level 0 02/07/23 12:56 Assessment Mental Status: Arousable with meaningful communication Airway and Respiratory Function: Patent airway with normal (patient baseline) respiratory exam Cardiovascular Function: Hemodynamically Stable Hydration Status: Adequately Hydrated Nausea & Vomiting: No Nausea or Vomiting Pain: Pt. Denies Any Pain Peripheral Nerve Block: Patient did not receive a nerve block
[2023-02-07 13:30] VITALS: BP 143/67; PULSE 65; RESP 16; TEMP 36.5; O2SAT 97
== END 2023-02-07 13:35 | disposition home or self-care (01) ==
PROVIDERS: PCP Nurse Practitioner Family; Visit Provider Student in an Organized Health Care Education/Training Program
PROC: 01N54ZZ Release Median Nerve, Percutaneous Endoscopic Approach (ICD-10-PCS; CPT 29848; principal; 2023-02-07 13:30)
DX: G56.01 Carpal tunnel syndrome, right upper limb (principal)
CPT/HCPCS: 29848; J1885; J2250; J2405; J2704; J3010

== ENCOUNTER 2023-02-12 18:29 | Outpatient (REF) | payer MEDICAID, SELFPAY | END 2023-02-12 18:30 | disposition home or self-care (01) | LOC: NCHCN 18:29 | PROVIDERS: PCP Nurse Practitioner Family; Visit Provider Nurse Practitioner Family | DX: F32.9 Major depressive disorder, single episode, unspecified (principal); K30 Functional dyspepsia; R73.03 Prediabetes; J98.4 Other disorders of lung; J44.1 Chronic obstructive pulmonary disease with (acute) exacerbation; G56.03 Carpal tunnel syndrome, bilateral upper limbs; L08.9 Local infection of the skin and subcutaneous tissue, unspecified | CPT/HCPCS: 87077; 87070; 87186; 87205 ==

== ENCOUNTER 2023-11-13 18:08 | Outpatient (REF) | payer MEDICAID, SELFPAY ==
--- OUTSIDE RECORDS SUMMARY | 2023-11-13 18:09 | XMS_ITS | Data Portability ---
Author Organization [place] - [facility] [place] [place] [address] Assessment Encounter Date Assessment Date Assessment LastModified by Organization Details LastModified Time 05/17/2023 05/17/2023 Flu vaccine: declines Comirnaty: declines Td: current PCV20: completed Shingrix: declines RSV: counseled to get at local pharmacy as desires CRC: Has opted to forgo, will cancel. AAA Screening: n/a [email or web address] Not available 05/17/2023 11:15:32 06/28/2023 06/28/2023 The total time devoted to today's encounter, including both the [id number] time with the patient and/or family/caregi trish and urp-uhqo-ra-f bladimir time I personally spent is 34 minutes. Flu vaccine: declines Comirnaty: declines Td: current PCV20: completed Shingrix: declines RSV: counseled to get at local pharmacy as desires CRC: Has opted to forgo, will cancel. AAA Screening: n/a Nurse visit in July for CBC with diff, iron/ TIBC/ transferrin, ferritin, A1C, CMP, lipids- fasting Not available 06/28/2023 12:13:06 11/13/2023 11/13/2023 Flu vaccine: declines Comirnaty: declines Td: current PCV20: completed Shingrix: declines RSV: counseled to get at local pharmacy as desires CRC: declines all screening AAA Screening: n/a Follow-up in 3 Months. Call or RTO sooner if needs arise. Not available 11/13/2023 14:37:58 Plan of Treatment Reminders Order Date Submit Date Provider Last Modified By Organization Details Last Modified Time Details Appointments Follow Up 30 2023 02:10P M DIANE LUNA Not available Not available Not available Follow Up 30 2023 10:00A Dandre DIANE CHERYL Not available Not available Not available Lab hemoglobi n A1C, fingersti ck 2023 024 [facility], [address], [place], [address], 05/17/2023 12:51:42 lipid panel, serum - 1 Sabinal 1 Purple, Drawn in office, Left AC, cp [address] [facility] (Registration ), [address] [place] [address] [place], [address], 11/13/2023 16:02:30 CMP, serum or plasma 2023 024 ATHENAFAX [facility] (Registration ), [address] [place] [address] [place], [address], 11/13/2023 16:05:28 urinalysi s complete, reflex culture [address] [facility] (Registration ), [address] [place] [address] [place], [address], 11/13/2023 16:02:30 microalbu min/creat inine, mass ratio, urine [address] [facility] (Registration ), [address] [place] [address] [place], [address], 11/13/2023 16:02:30 iron + TIBC + ferritin, serum [address] [facility] (Registration ), [address] [place] [address] [place], [address], 11/13/2023 16:02:30 CBC w/ diff [address] [facility] (Registration ), [address] [place] [address], [address], 11/13/2023 16:02:30 Referral None recorded. Procedures None recorded. Surgeries None recorded. Imaging None recorded. Medication Orders famotidin e 20 mg tablet 2023 024 [facility] [address] [place] [address], [address], 05/17/2023 12:48:41 sertralin e 100 mg tablet 2023 024 shamirMaria Elena [facility], [address] [place] [address], [address], 05/17/2023 12:48:41 gabapenti n 300 mg capsule 2023 024 cristina [facility], [address] [place] [address], [address], 06/28/2023 11:49:39 Trelegy Ellipta 200 mcg-62.5 mcg-25 mcg powder for inhalatio n 2023 024 jayme [facility], [address] [place] [address], [address], 05/17/2023 12:48:41 Singulair 10 mg tablet 2023 024 jayme [facility], [address] [place] [address], [address], 05/17/2023 12:48:41 albuterol sulfate HFA 90 mcg/actua tion aerosol inhaler 2023 024 jayme [facility], [address] [place] [address], [address], 05/17/2023 12:48:41 Trelegy Ellipta 200 mcg-62.5 mcg-25 mcg powder for inhalatio n 2023 024 TOBI [facility], [address] [place] [address], [address], 06/28/2023 12:05:55 sildenafi l 50 mg tablet 2023 024 [facility], [address] [place], [address], 11/13/2023 16:02:30 Singulair 10 mg tablet 2023 024 [facility], [address] [place] [address], [address], 11/13/2023 16:02:30 Patient TargetsNo targets recorded. Patient Instructions Encounter Date Encounter Id Patient Instructions Last Modified By Organization Details Last Modified Time 05/17/2023 [id number] starting a weigh t loss plan: care instructions Not available 05/17/2023 11:21:43 When You Want to Lose Weight: Care Instructions Not available 05/17/2023 11:21:42 06/28/2023 [id number] When You Want to Lose Weight: Care Instructions Not available 06/28/2023 12:05:37 starting a weigh t loss plan: care instructions Not available 06/28/2023 12:05:37 learning about obesity Not available 06/28/2023 12:05:37 [facility] Not available 06/28/2023 12:05:37 obesity educatio n information Not available 06/28/2023 12:05:37 Learning About Weight-Loss (Bariatric) Surgery Not available 06/28/2023 12:05:37 Reason for Referral None Reported. Results Created Date Observation Date Name Description Value Unit Range Abnormal Flag LastModifiedBy Organization Detail LastModifiedTime 05/17/19 24 05/17/2023 hemog lobin A1C, finge rstic k HGBA1C 6.7 % <5.7 Not Available [address], [address], 05/17/2023 11:57:32 Result Notes None recorded. Problems Name Status Onset Date Resolution Date Notes Provider Name and Address Organization Details Recorded Time Major depression, single episode Active 201411/12/2020 . Problem Code: F32.9; Problem Code Type: ICD-10; Traci juan, [facility]. 11:29:26 Nicotine dependence Active 201411/12/2020 . Problem Code: F17.200; Problem Code Type: ICD-10; Traci juan, [facility], [facility]. 11:29:35 Obesity Active 201411/12/2020 . Problem Code: E66.9; Problem Code Type: ICD-10; Traci juan, [facility], [facility]. 11:29:52 Chronic obstructive pulmonary disease Active 201411/12/2020 Problem Code: J44.9; Problem Code Type: ICD-10; Traci juan, [facility] 11:28:51 Screening for malignant neoplasm of colon Active 2018 Problem Code: Z12.11; Problem Code Type: ICD-10; DIANE LUNA, ERNESTO [address], [place], [address] [facility], [facility]. 14:46:08 Atheroscleros is of artery Active 201811/12/2020 Problem Code: I70.90; Problem Code Type: ICD-10; Traci juan, [facility] 11:28:35 Nonulcer dyspepsia Active 201911/12/2020 Problem Code: K30; Problem Code Type: ICD-10; Traci juan, [facility] 11:29:44 Fatigue Active 202011/12/2020. Problem Code: R53.83; Problem Code Type: ICD-10; Traci juan, [facility] 4 11:29:16 Iron deficiency anemia Active 2020 Problem Code: D50.9; Problem Code Type: ICD-10; [address], [facility] [address] [facility] 4 14:46:08 Disorder of lung Active 2020 Problem Code: J98.4; Problem Code Type: ICD-10; pulmonary nodule Traci juan, [facility] 4 11:29:04 Acute exacerbation of chronic obstructive pulmonary disease Completed 202207/23/2022 Problem Code: J44.1; Problem Code Type: ICD-10; [address], [facility] [id number] [place] [address] 4 04:46:47 Hypoxemia Completed 202207/23/2022 Problem Code: R09.02; Problem Code Type: ICD-10; Not Available [facility] 3 05:11:23 Sleep apnea Active 2022 Problem Code: G47.30; Problem Code Type: ICD-10; [address], [facility] [address] [facility] 4 14:46:08 Joint pain Active 2022 Problem Code: M25.50; Problem Code Type: ICD-10; ER[address], [facility] [address] [facility] 4 14:46:08 Carpal tunnel syndrome Active 2022 Problem Code: G56.00; Problem Code Type: ICD-10; ER[address]STO [address], [facility] [address] [facility] 4 14:46:08 Overweight Completed 201401/17/2023 Problem Code: E66.3; Problem Code Type: ICD-10; Not Available [facility] 3 05:11:24 Otitis media Completed 202208/02/2022 Problem Code: H66.90; Problem Code Type: ICD-10; Not Available [facility] 3 05:11:24 Disorder of male genital organ Completed 202004/21/2021 Problem Code: N50.9; Problem Code Type: ICD-10; Not Available [facility] 3 05:11:24 Pleuritic pain Completed 201610/12/2016 Problem Code: R07.81; Problem Code Type: ICD-10; Not Available [facility] 3 05:11:24 Cough Completed 201509/23/2018 Problem Code: R05; Problem Code Type: ICD-10; Not Available [facility] 3 05:11:24 Pneumonia Completed 201401/17/2023 Problem Code: J18.9; Problem Code Type: ICD-10; Not Available [facility] 3 05:11:25 Dyspnea Completed 201401/17/2023 11/06/2014 - Comments only - Diane Luna [employer] PRO[employer]ER - Differentials include COPD, asthma,? Malignancy. We will start on Flovent, most likely will need anticholinerg ic as well. Albuterol inhaler PRN. We will order pulmonary function tests for evaluation. Consider chest x-ray if indicated, no improvement in respiratory status. Nursing to provide inhaler education. Discuss Pneumovax at next visit. Problem Code: R06.02; Problem Code Type: ICD-10; Not Available [facility] 3 05:11:25 Chest pain Completed 201404/21/2021 Problem Code: R07.9; Problem Code Type: ICD-10; Not Available [facility] 3 05:11:25 Carpal tunnel syndrome of left wrist Completed 202210/13/2022 Problem Code: G56.02; Problem Code Type: ICD-10; Not Available [facility] 3 05:11:25 History of recurrent pneumonia Completed 201409/23/2018 Problem Code: Z87.01; Problem Code Type: ICD-10; Not Available [facility] 3 05:11:25 Anemia Active 2020 Problem Code: D64.9; Problem Code Type: ICD-10; Not Available [facility] 4 05:35:55 Localized infection of skin AND/OR subcutaneous tissue Active 2022 Problem Code: L08.9; Problem Code Type: ICD-10; Not Available [facility] 4 05:35:55 Carpal tunnel syndrome Active 2023 DIANE LUNA APRN [address], [facility] [phone] [place] [address] 4 04:47:42 Type 2 diabetes mellitus without complication Active 2023 DIANE LUNA APRN [address], [facility] [phone] [place] [address] 4 11:20:11 Prediabetes Active 2020 Traci juan, [facility] 4 11:30:33 Erectile dysfunction Active 2023 DIANE LUNA APRN [address], [facility] [phone] [place] [address] 4 14:28:33 Problem Notes None recorded. Medical Equipment None Reported. Allergies No known drug allergies Medications Name Sig Start Date Stop Date Status Note LastModified by Organization Details LastModified Time Singulair 10 mg tablet Take 1 tablet by mouth once a day as directed 2023 active Not Available Not Available Not Avai lable amoxicillin 500 mg capsule TAKE ONE CAPSULE BY MOUTH EVERY 8 HOURS FOR 7 DAYS 05/17 completed Not Available Not Available Not Available prednisone 10 mg tablet Take 5 tabs daily for 3 days, then 4 tabs daily for 3 days, then 3 tabs daily for 3 days, then 2 tabs daily for 3 days, then 1 tab daily for 3 days, then stop 02/12 completed Not Available Not Available Not Available nicotine 14 mg/24 hr daily transdermal patch Apply 1 patch to skin once a day for tobacco cessation 11/20 completed Not Available Not Available Not Available ipratropium 0.5 mg-albutero l 3 mg (2.5 mg base)/3 mL nebulizatio n soln Inhale 1 vial using nebulizer every six hours as needed for shortness of breath or wheezing 11/20 completed Not Available Not Available Not Available albuterol sulfate 2.5 mg/3 mL (0.083 %) solution for nebulizatio n Inhale 1 vial using nebulizer four times a day as needed 04/25 completed Not Available Not Available Not Available sildenafil 50 mg tablet Take 1 tablet every day by oral route. 2023 active Not Available Not Available Not Avai lable cefpodoxime 200 mg tablet Take 1 tablet by mouth twice a day with a meal/food 08/02 completed Not Available Not Available Not Available azithromyci n 250 mg tablet Take 1 tablet by mouth every night 08/02 completed Not Available Not Available Not Available hydrocodone 5 mg-acetamin ophen 325 mg tablet TAKE ONE TABLET BY MOUTH EVERY 6 HOURS NEEDED FOR PAIN 05/17 completed Not Available Not Available Not Available prednisone 20 mg tablet Take 3 tablet by mouth once a day 11/20 completed Not Available Not Available Not Available sertraline 100 mg tablet TAKE 1 AND 1/2 TABLETS BY MOUTH ONCE DAILY active Not Available Not Available No t Available Wellbutrin SR 150 mg tablet, 12 hr sustained-r elease 1 tab a day 09/23 completed Not Available Not Available Not Available triamcinolo ne acetonide 0.5 % topical ointment APPLY A SMALL AMOUNT TO AFFECTED AREA(S) THREE TIMES A DAY active Not Available Not Available No t Available sulfamethox azole 800 mg-trimetho prim 160 mg tablet TAKE ONE TABLET BY MOUTH TWICE A DAY 05/17 completed Not Available Not Available Not Available acetaminoph en 500 mg tablet TAKE TWO TABLETS BY MOUTH THREE TIMES A DAY active Not Available Not Available No t Available famotidine 20 mg tablet TAKE ONE TABLET BY MOUTH AT BEDTIME active Not Available Not Available No t Available Pulmicort 0.5 mg/2 mL suspension for nebulizatio n Inhale 1 vial via nebulizer twice a day 08/02 completed Not Available Not Available Not Available cephalexin 500 mg capsule Take 1 capsule by mouth three times a day 03/02 completed Not Available Not Available Not Available simvastatin 20 mg tablet TAKE ONE TABLET BY MOUTH EVERY EVENING active Not Available Not Available No t Available ferrous sulfate 325 mg (65 mg iron) tablet Take 1 tablet by mouth as directed Take 1 tablet Sunday, Sunday and 11/12 completed Not Available Not Available Not Available Qvar 40 mcg/actuati on Metered Aerosol oral inhaler Inhale 2 puff by mouth Q 12 hours 2015 active Not Available Not Available Not Avai lable Advair Diskus 500 mcg-50 mcg/dose powder for inhalation Inhale 1 puff as directed twice a day 10/27 completed Not Available Not Available Not Available gabapentin 300 mg capsule TAKE TWO CAPSULES BY MOUTH THREE TIMES A DAY 06/27 completed Not Available Not Available Not Available aspirin 81 mg tablet Take 1 tablet by mouth once a day 2018 active Not Available Not Available Not Avai lable Aspir-81 mg tablet,noe yed release Take 1 tab by mouth daily 2018 active Not Available Not Available Not Avai lable doxycycline hyclate 100 mg tablet Take 1 tablet by mouth twice a day 10/03 completed Not Available Not Available Not Available loratadine 10 mg tablet Take 1 tablet by mouth once a day as needed 2018 active Not Available Not Available Not Avai lable Ventolin HFA 90 mcg/actuati on aerosol inhaler INHALE 2 PUFFS BY MOUTH EVERY 6 HOURS NEEDED active Not Available Not Available No t Available Spiriva with HandiHaler 18 mcg and inhalation capsules Inhale 1 capsule once a day 03/22 completed Not Available Not Available Not Available Flovent HFA 44 mcg/actuati on aerosol inhaler 2 puffs twice a day 08/18 completed Not Available Not Available Not Available Flovent HFA 110 mcg/actuati on aerosol inhaler Inhale 2 puffs by mouth twice daily 06/18 completed Not Available Not Available Not Available Flovent HFA 220 mcg/actuati on aerosol inhaler Inhale 2 puffs by mouth twice daily 07/19 completed Not Available Not Available Not Available Claritin Take 1 cap once a day active Not Available Not Available No t Available Advair HFA 115 mcg-21 mcg/actuati on aerosol inhaler Inhale 1 puffs by mouth twice daily 2019 active Not Available Not Available Not Avai lable Advair HFA 230 mcg-21 mcg/actuati on aerosol inhaler Inhale 1 puff by mouth twice a day 11/01 completed Not Available Not Available Not Available Symbicort 160 mcg-4.5 mcg/actuati on HFA aerosol inhaler Inhale 2 puff using inhaler twice a day 01/18 completed Not Available Not Available Not Available melatonin 5 mg tablet Take 1-2 tablet by mouth every night 11/01 completed Not Available Not Available Not Available guaifenesin ER 600 mg tablet, extended release 12 hr Take 1 tablet by mouth twice a day as needed for cough 11/27 completed Not Available Not Available Not Available Incruse Ellipta 62.5 mcg/actuati on powder for inhalation Inhale 1 puff as directed once a day 01/18 completed Not Available Not Available Not Available Qvar RediHaler 40 mcg/actuati on HFA breath activated aerosol take 2 puffs twice a day 07/20 completed Not Available Not Available Not Available Trelegy Ellipta 200 mcg-62.5 mcg-25 mcg powder for inhalation INHALE 1 PUFF DIRECTED ONCE A DAY active Not Available Not Available No t Available Vitals Date Recorded Body height Body mass index (BMI) Body weight Oxygen saturation Oxygen saturation in Arterial blood by Pulse oximetry Heart rate Systolic blood pressure Diastolic blood pressure Provider Name and Address Organization Details Last Updated DateTime 4 176.53 cm 32.8 kg/m2 867174. 68 g 96 % 96 % 77 /min 118 mm[Hg] 64 mm[Hg] YESSENIA LAW CMA [facility] 4 10:53:22 Date Recorded Body height Body mass index (BMI) Body weight Oxygen saturation Oxygen saturation in Arterial blood by Pulse oximetry Heart rate Systolic blood pressure Diastolic blood pressure Provider Name and Address Organization Details Last Updated DateTime 4 176.53 cm 32 kg/m2 13497.3 2 g 96 % 96 % 69 /min 110 mm[Hg] 62 mm[Hg] YESSENIA LAW CMA [facility] 4 11:48:24 Date Recorded Body height Body mass index (BMI) Body weight Body temperature Oxygen saturation Oxygen saturation in Arterial blood by Pulse oximetry Heart rate Respiratory rate Systolic blood pressure Diastolic blood pressure Provider Name and Address Organization Details Last Updated DateTime 4 176.53 cm 30.6 kg/m2 69642.4 g 97.4 [degF] 94 % 94 % 80 /min 16 /min 112 mm[Hg] 60 mm[Hg] Dee Nesbitt RN [facility] 4 14:16:37 Social History Question Answer Notes LastModified by Organizat ion Details LastModified Time Tobacco Smoking Status Current Every Day Smoker YESSENIA LAW CMA null, [facility] 05/17/2023 10:59:27 What Was The Date Of Your Most Recent Tobacco Screening? 11/13/2023 Information not available 11/13/2023 At What Age Did You Start Smoking Tobacco? 18 Information not available 05/17/2023 How Much Tobacco Do You Smoke? 0.5 PPD Information not available 05/17/2023 Has Tobacco Cessation Counseling Been Provided? Yes Information not available 05/17/2023 On What Date Was Tobacco Cessation Counseling Provided? 11/13/2023 Information not available 11/13/2023 How Many Years Have You Smoked Tobacco? 45 Information not available 05/17/2023 Do You Or Have You Ever Used Any Other Forms Of Tobacco Or Nicotine? No Information not available 05/17/2023 Sex: Male Functional Status None recorded. Mental Status None recorded. Family History Relationship Description Onset Age of this Age Resolved Age Notes Father Family history of di abetes mellitus type 1 Notes:*Problem: Mother- dece ased- smoker, COPD Father- - CAD. Siblings- 2 brothers, 3 sisters, all healthy. 2 adult children in good health HTN: no HLD: no CAD: Yes DM: yes, father's side Breast CA: no Colon CA: no Prostate CA: no Medical History No medical history recorded. Immunizations Vaccine Type Date Status Provider Name and Address Organization Details Recorded Time Tdap 01/31/2016 completed Not Available [facility] 04:53:20 Influenza, split virus, trivalent, preservative 06/18/2015 completed Not Available [facility] 03/02/2023 04:53:20 Influenza, split virus, trivalent, preservative 03/03/2016 completed Not Available [facility] 03/02/2023 04:53:21 COVID-19, mRNA, LNP-S, PF, 100 mcg/0.5mL dose or 50 mcg/0.25mL dose 07/26/2020 completed Not Available [facility] 03/02/2023 04:53:21 COVID-19, mRNA, LNP-S, PF, 100 mcg/0.5mL dose or 50 mcg/0.25mL dose 08/23/2020 completed Not Available [facility] 03/02/2023 04:53:21 COVID-19, mRNA, LNP-S, PF, 100 mcg/0.5mL dose or 50 mcg/0.25mL dose 03/22/2021 completed Not Available [facility] 03/02/2023 04:53:21 Pneumococcal conjugate PCV20, polysaccharide SQW925 conjugate, adjuvant, PF 11/20/2022 completed Not Available [facility] 03/02/2023 04:53:21 pneumococcal polysaccharide PPV23 12/30/2015 completed Not Available [facility] 2022 04:53:21 Past Encounters Encounter ID Performer Location Encounter Start Date Encounter Closed Date Diagnosis/Indication Diagnosis SNOMED-CT Code [id number] DIANE LUNA APRN [address] [address] 05/17/2023 10:44:46 05/17/2023 11:59:48 Nonulcer dyspepsia 7129803 Atheroscle rosis of artery 982821789 Carpal tania florina syndrome 59005788 Sleep apnea 11133461 Iron defic iency anemia 99455403 Chronic ob structive pulmonary disease 00187782 Joint pain 07781756 Major depr ession, single episode 14761883 Type 2 karen betes mellitus without complication 582167177 [id number] DIANE LUNA[address] [address] 06/28/2023 11:39:15 06/28/2023 12:27:59 Carpal tunnel syndrome 59018710 Joint pain 79607295 Chronic ob structive pulmonary disease 40622728 Sleep apnea 16417651 Iron defic iency anemia 83212958 Type 2 karen betes mellitus without complication 569329457 Atheroscle rosis of artery 544383963 Nonulcer dyspepsia 61367 07 Major depr ession, single episode 29953554 [id number] DIANE [address] [address] 11/13/2023 14:08:55 11/13/2023 15:12:41 Carpal tunnel syndrome 83061560 Joint pain 29883872 Chronic ob structive pulmonary disease 46190305 Sleep apnea 43720823 Iron defic iency anemia 76030732 Type 2 karen betes mellitus without complication 191001635 Atheroscle rosis of artery 946077736 Nonulcer dyspepsia 61782 07 Major depr ession, single episode 99046468 Erectile dysfunction 860 046529 Goals Section Goal Description Status Start Date LastModified by Organization Details LastModified Time Pt will improve dietary intake d/t new DM diagnosis None Recorded Goal not achieved DANIEL BERMEO Information not available 05/18/2023 16:43:09 Pt will increase his activity level None Recorded Goal not achieved DANIEL BERMEO Information not available 05/18/2023 16:49:42 Health Concerns Section Related Observation LastModified by Organization Detai ls LastModified Time None Recorded Concern Status LastModified by Organization Details LastModified Time None Recorded Advance Directives Directive None Recorded Payers Encounter Date Sequence Insurance Name Policy Number Policy Lane Covered Member ID Lane Member ID Guarantor Name 05/17/2023 1 [facility] (MEDICAID) Jose A Jane [id number] Jose A Jane 06/28/2023 1 [facility] (MEDICAID) Jose A Jane [id number] Jose A Jane 11/13/2023 1 [facility] (MEDICAID) Jose A Jane [id number] Jose A Jane Notes Date Note Type Note Provider Name and Address Organization Details Recorded Time 05/17/2023 text/html HPI Notes: Is he re for follow-up: - Carpal tunnel syndrome, bilateral. Takes gabapentin. Had release on left side 01/13 and release on right side 02/12. Has a rash on the left release site. The pain is a little better. Had an infection on the left side, has been treated with bactrim and then cephalexin. Rash cleared and then started to return again. + itch. No discomfort. not using anything topically right now. Sometimes the right hand will itch and be tried. -Arthralgias. Takes gabapentin. -COPD. Pulmonary nodule. Tobacco abuse. Takes trelegy, singulair, Claritin, albuterol PRN. Hospitalized 08/13 for COPD exacerbation. COPD exacerbation in 12/13. -Sleep apnea unspecified. Fatigue. Untreated. -Anemia. Normal iron levels 12/13 and was recommended to stop iron supplementation. Has referral for colo and to hematology. -Prediabetes. Obese. Working on lifestyle. -Dyspepsia. Takes Pepcid. -Atherosclerosis. Takes simvastatin, ASA. -Depression. Takes sertraline. DIANE LUNA, [employer] [address], [place], [address], [place] [facility]. 05/17/2023 13:09:00 06/28/2023 text/html HPI Notes: Is he re for follow-up: - Carpal tunnel syndrome, bilateral. Takes gabapentin. Had release on left side 01/13 and release on right side 02/12. Has a rash on the left release site. The pain is a little better. Had an infection on the left side, has been treated with bactrim and then cephalexin. Rash cleared and then started to return again. + itch. No discomfort. not using anything topically right now. Sometimes the right hand will itch and be tried. Last visit was encouraged to use emollients BID. To consider doing an anti-inflammatory diet. - Arthralgias. Gabapentin, stopped 3 weeks ago and without, the pain is manageable. - COPD. Pulmonary nodule. Tobacco abuse. Takes trelegy, singulair, Claritin, albuterol PRN. Hospitalized 08/13 for COPD exacerbation. COPD exacerbation in 12/13. has been without his trelegy for the last 2 months. Using his emergency inhaler 2+ times per day. - Sleep apnea unspecified. Fatigue. Untreated. - Anemia. Normal iron levels 12/13 and was recommended to stop iron supplementation. Has referral for colo and to hematology. Last visit he has elected to cancel the colo. - Diabetes. Obese. Working on lifestyle. Not on medications for. - Dyspepsia. Takes Pepcid. - Atherosclerosis. Takes simvastatin, ASA. - Depression. Takes sertraline. DIANE LUNA, RADIO PROGRAM CHECKER [address], [place], [address], [facility] 06/28/2023 13:48:15 11/13/2023 text/html HPI Notes: Is he re for follow-up: Would like to trial viagra for his ED. it doesn't really work. Sometimes can get a small erection that does not last long enough. Is able to ejaculate. - Carpal tunnel syndrome, bilateral. Takes gabapentin. Had release on left side 01/13 and release on right side 02/12. Has a rash on the left release site. The pain is a little better. Had an infection on the left side, has been treated with bactrim and then cephalexin. Rash cleared and then started to return again. + itch. No discomfort. not using anything topically right now. Sometimes the right hand will itch and be tried Has gabapentin. --update 11.13.23. no longer having pain. - Arthralgias. Has gabapentin. -- Update 11.13.23- joints not bothersome. Not taking gabapentin. - COPD. Pulmonary nodule. Tobacco abuse. Takes trelegy, singulair, Claritin, albuterol PRN. Hospitalized 08/13 for COPD exacerbation. COPD exacerbation in 12/13. has been without his trelegy for the last 2 months. Using his emergency inhaler 2+ times per day. -- Update 11.13.23-using emergency inhaler night time. not taking singulair. Using trelegy daily. - Sleep apnea unspecified. Fatigue. Untreated. - Anemia. Normal iron levels 12/13 and was recommended to stop iron supplementation. Has declined doing colo. -- update 11.13.23. not on iron supplement. - Diabetes. Obese. Working on lifestyle. Not on medications for. -- update 11.13.23-not checking sugars. not working on diet, only thing he did was increase his water intake. - Dyspepsia. Takes Pepcid. - Atherosclerosis. Takes simvastatin, ASA. - Depression. Takes sertraline. DIANE LUNA, RADIO PROGRAM CHECKER [address], [place], [address], [place] [facility]. 11/13/2023 16:00:54
--- OUTSIDE RECORDS SUMMARY | 2023-11-13 18:09 | XMS_ITS | Data Portability ---
Author Organization [place] - [facility], [facility], Historical Import Interface Address [address] [place] [address] Assessment Encounter Date Assessment Date Assessment LastModified by Organization Details LastModified Time 09/05/2022 09/05/2022 DOS: 09/05/2022 Tx: DEANA, CABAN, Caries Risk & Tx plan? NV: ??Consult w/ Frandy for ext w IV sed NHV: SENIOR ADVISOR?? FMD CIRCULAR SAW EDGE FUSER ?? Completed Procedures D0150 - Comprehensive oral evaluation - new or established patient D0603 - Caries risk assessment and documentation, with a finding of high risk D0330 - Panoramic radiographic image Md Hx: see EMR ? Pt presents for DEANA with CC: I want them all pulled and get dentures made. It has been a long time since last dental visit. ? Med hx overview: ?? - SEE EMR ?? Dental anxiety: no ?? Specific stimuli: n/a? Habits: ?? - Diet: fair- Drink's a lot of coffee w/ splenda - Homecare: fair- Brushes 2x/day - Smoking: yes- 1/2 pack. Previously ??smoked a pack a half. Started cutting back 3-4 months ago - Vaping: no ?? - Alcohol:?? no ??- quit 17 years ago - Cannabis: no ? TMJ:? - pt does not report hx of clenching/grindin g ? OCS: ?? - risk: high?? - IOE: WNL ?? - EOE: WNL ?? Radiographic Exam: pano - existing as charted ?? - Calculus: Moderate?? - Bone loss: yes - Caries:?? #5-#14 all surfaces #21-MBD #22-F #24-I #27-F #28-MBDL - Pathology: none ? Occlusion: ??can't be evaluated? Hard Tissue Exam ?? - caries?? as charted: all surfaces all maxillary teeth; #21 and #28-MDFL's, #22 and #27-F's? - incisal / occlusal wear/erosion: no ?? - non carious cervical lesions: no ?? - stain: generalized?? moderate? Caries risk: high ?? Risk factors: diet / presence of IPx restorations / existing caries / presence of plaque ? Periodontal Exam: ?? - Color: Red ?? - Texture: boggy ?? - Consistency: boggy?? - Papilla: rounded?? - Plaque: generalized?? severe - Calculus: generalized?? moderate?? - Mobility:?? no ?? - Diagnosis: Pending CIRCULAR SAW EDGE FUSER, plaque induced gingivitis for remaining lower teeth ? Discussion: ?? - Reviewed findings, tx options, risks, benefits, and potential consequences of no tx which pt understood. Addressed all pt's questions and concerns.? - Disc rec to ext all remaining and plan for dentures - disc immediate vs delayed vs conventional dentures, rec delayed (6 weeks after ext's take initial imp's) d/t extent of caries - briefly overviewed expectations for dentures ?? Treatment Plan (s) and order of visits: ?? 1) SENIOR ADVISOR?? FMD / CIRCULAR SAW EDGE FUSER ?? 2) ??Consult w/ Dr. Wise?? 3) Extractions?? 4) ??Initial impressions for UCD, LRPD 5) #22-F, #27-F ?? Referral: consult w/ Dr. Wise ?? Certified Orthotist Practice Manager:? Patti ? , 1:51 PM. I attest that the treatment rendered today is completed and treatment met the standard of care. , 4:27 PM. [id number] Not available 09/12/2022 11:02:25 09/27/2022 09/27/2022 DOS: ??09/27/2022 TX: ?? Consult?? NV:?? EXT #5-14, 21, 28 w/ Deep sedation ?? Completed Procedures D9310 - Consultation - diagnostic service provided by dentist or physician other than requesting dentist or physician CC: Patient presents for consult for ??Extraction of all remaining teeth PMHx: ?? See EMR?? Allergies: ?? See EMR ?? DX: decay,?? Radiograph:?? Gross caries of all remaining maxillary teeth and 21 and 28 without periapical pathology.?? No intrabony pathology noted.? Exam: ?? Gross caries of all remaining maxillary teeth and 21 and 28 without swelling, purulence/drainag e.?? FOM soft.?? No mucosal lesions noted.? TX plan: EXT #5-, , w/ Deep sedation?? Pt. referred from:??Dr. Stella Hilton [facility] ? Discussed NPO status. Made pt is aware they will need a responsible adult as escort to and from procedure. ?? Strongly recommend the escort stay with pt for the day to monitor pt safety.? Certified Orthotist Practice Manager : Meena?? , 9:56 AM. I attest that the treatment rendered today is completed and treatment met the standard of care. , 11:02 AM. [id number] Not available 10/20/2022 08:42:52 10/11/2022 10/11/2022 DOS 10/11/22?? NV: PRN for follow up Completed Procedures D7210 - Extraction, erupted tooth requiring removal of bone and/or sectioning of tooth, and including elevation of mucoperiosteal flap if indicated Teeth: 11 D9310 - Consultation - diagnostic service provided by dentist or physician other than requesting dentist or physician D9222 - deep sedation/general anesthesia - first 15 minutes D9223 - deep sedation/general anesthesia - each subsequent 15 minute increment D7140 - Extraction, erupted tooth or exposed root (elevation and/or forceps removal) Teeth: 5 6 7 8 9 10 21 28 TX: Consult, ??GA, ??Extractions #'s 5,6,7,8,9,10,11,1 2,13,14,21,28 CC: Patient presents for planned extraction appt. PMHx: ??See EMR Allergies: ??See EMR PT referred from:?? Dr. Hilton?? DX: Acute stress reaction,?? decay,?? PE: JOHNNIE 40mm, Tongue WNL, FOM WNL, Mallmapati: II Radiograph:?? Gross caries of all remaining maxillary teeth and #21, 28 without periapical pathology.? Exam:?? Root tips #5-14, gross caries #21, 28 without swelling, purulence.?? FOM soft.?? NO mucosal lesions noted.? Reviewed procedure and answered all pt/ caregiver questions Surgical timeout completed Procedure: 20 ??/ ??22g angiocath placed in RT/LT ?? AC/Dorsal Pt. sedated per anesthesia record 6?Carpules 2% lido w/epi 1:100k 1?Carpules 0.5 % Marcaine w/ epi 1:200k Procedure: Bite block placed # 11 Used surgical handpiece to trough buccal bone and section tooth 5,6,7,8,9,10,11,1 2,13,14,21,28 Elevate and deliver tooth with elevators and forceps without complications Surrounding bone smoothed with bone file Socket curetted Copious irrigation with NSS No sinus communication detected No nerve visualized All adjacent teeth intact B/L pressure applied to socket 3-0 CG sutures Gauze placed Good hemostasis achieved Pt tolerated procedure well Pain Management: 600 mg ibuprofen, 500 mg acetaminophen q6h pain Rx: Hydrocodone/APAP 5mg/325 mg disp ??# ??6 tablets ??Ibuprofen 600 mg tablet x 30 1 tab PO every 6 hours ABX: prescribed Amoxicillin 500 mg ??# 21 tablets, 1 tab PO 3 time per day Assisted BY: Chair side/ Airway:?? Rosio?? Documentation: ??Becky, , 11:52 AM. I attest that the treatment rendered today is completed and treatment met the standard of care. , 12:09 PM. [id number] Not available 10/17/2022 08:58:23 12/28/2022 12/28/2022 12/28/22 SENIOR ADVISOR APRO, JOSEFINA w/Dr Hilton, [facility], Tobacco Alumni Relations Coordinator, 5% NaF varnish NHV: 6M APRO, [place] NV w/Dr Hilton:??#22-F, #27-F -1hr column 1 Completed Procedures D1206 - Topical application of fluoride varnish D1110 - Prophylaxis - adult D0140 - Limited oral evaluation - problem focused D0603 - Caries risk assessment and documentation, with a finding of high risk D1320 - Tobacco counseling for the control and prevention of oral disease CC: ??yrs since last APRO/ discomfort on the UL - bone spur? HHX: Reviewed, no changes. NKDA. No CI to TX. ?? BP: ??128/46?? P: 65 EOE/IOE: No s/s of hard or soft tissue pathology. ?? Exam: Pt is 62yo, presents for SENIOR ADVISOR APRO. DEANA by Dr Hilton and MEE from 09/05/22. Existing restorative tx plan for OPS: #22-F, 27-F.?? JOESFINA by Dr Hilton , evaluated UL. Sharp bony protrusion #11 area. Exts w/Dr Wise on 10/11/22. Discussed giving more time for area to heal, discussed bone spicules should still wok themselves out and the area will round off. Will re-evaluate at next OP visit. If still uncomfortable or taking longer to heal, could shave it down at that time. Pt to let us know if it becomes to uncomfortable prior to that appt. Caries Risk: high POH: LT plaque, ??LT+ calc, LT bleeding, pap redness.?? Explained plaque, gingivitis, tartar, decay and perio. ?? OHI: Brushin-2x/daily Flossing: not regularly. Recommended brushing 2x/daily, flossing 1x/daily, using NaF rinse daily. ?? Perio: Stage I-Stage II perio, generalized, Grade B; Localized 4mm pocketing, MOD recession: 1-5mm . ? - see perio chart from 12/28/22. Reviewed w/pt. ?? Smoking: ??yes; 1/2ppd, pt states he's been cutting down, used to smoke a lot more. Discussed implications of smoking in regards to oral health. Pt is working towards quitting. Encouraged cessation. Hygiene Txt: Scaled/deplaqued all 4 quads with HI and USS. Pt tolerated USS well. Polished, flossed. ??Due to high caries risk applied 5% NaF varnish to all teeth (Reilly air purifier) Referral: None. ?? , 1:05 PM. I attest that the treatment rendered today is completed and treatment met the standard of care. , 2:34 PM. [email or web address] Not available 02/06/2023 11:44:44 Plan of Treatment Reminders Order Date Submit Date Provider Last Modified By Organization Details Last Modified Time Details Appointments None record ed. Lab None record ed. Referral None record ed. Procedures None record ed. Surgeries None record ed. Imaging None record ed. Medication Orders None record ed. Patient TargetsNo targets recorded. Patient InstructionsNo instructions recorded. Reason for Referral None Reported. Medical Equipment None Reported. Medications Name Sig Start Date Stop Date Status Note LastModified by Organization Details LastModified Time amoxicillin 500 mg capsule TAKE ONE CAPSULE BY MOUTH EVERY 8 HOURS FOR 7 DAYS active Not Available Not Available No t Available prednisone 10 mg tablet TAKE 5 TABLETS BY MOUTH DAILY FOR 3 DAYS, 4 TABLETS DAILY FOR 3 DAYS, 3 TABLETS DAILY FOR 3 DAYS, 2 TABLETS DAILY FOR 3 DAYS, THEN 1 TABLET active Not Available Not Available No t Available nicotine 14 mg/24 hr daily transdermal patch APPLY ONE PATCH TO SKIN ONCE DAILY NEEDED active Not Available Not Available No t Available ipratropium 0.5 mg-albuterol 3 mg (2.5 mg base)/3 mL nebulization soln INHALE THE CONTENTS OF ONE VIAL VIA NEBULIZER EVERY 6 HOURS NEEDED FOR WHEEZING OR SHORTNESS OF BREATH active Not Available Not Available No t Available cefpodoxime 200 mg tablet TAKE ONE TABLET BY MOUTH TWICE A DAY WITH A MEAL/FOOD active Not Available Not Available No t Available azithromycin 250 mg tablet TAKE ONE TABLET BY MOUTH EVERY EVENING FOR 4 DAYS active Not Available Not Available N ot Available hydrocodone 5 mg-acetaminop hen 325 mg tablet TAKE ONE TABLET BY MOUTH EVERY 6 HOURS NEEDED FOR PAIN active Not Available Not Available No t Available prednisone 20 mg tablet TAKE THREE TABLETS BY MOUTH EVERY DAY active Not Available Not Available No t Available sertraline 100 mg tablet TAKE ONE AND ONE-HALF TABLETS BY MOUTH EVERY DAY active Not Available Not Available No t Available triamcinolone acetonide 0.5 % topical ointment APPLY A SMALL AMOUNT TO AFFECTED AREA(S) THREE TIMES A DAY active Not Available Not Available No t Available sulfamethoxaz ole 800 mg-trimethopr im 160 mg tablet TAKE ONE TABLET BY MOUTH TWICE A DAY active Not Available Not Available No t Available acetaminophen 500 mg tablet TAKE TWO TABLETS BY MOUTH THREE TIMES A DAY active Not Available Not Available No t Available famotidine 20 mg tablet TAKE ONE TABLET BY MOUTH AT BEDTIME active Not Available Not Available No t Available cephalexin 500 mg capsule TAKE ONE CAPSULE BY MOUTH THREE TIMES A DAY active Not Available Not Available No t Available simvastatin 20 mg tablet active Not Available Not Available Not Available gabapentin 300 mg capsule TAKE TWO CAPSULES BY MOUTH THREE TIMES A DAY active Not Available Not Available No t Available montelukast 10 mg tablet TAKE ONE TABLET BY MOUTH EVERY DAY DIRECTED active Not Available Not Available No t Available doxycycline hyclate 100 mg tablet TAKE ONE TABLET BY MOUTH TWICE A DAY active Not Available Not Available No t Available Ventolin HFA 90 mcg/actuation aerosol inhaler INHALE TWO PUFFS BY MOUTH EVERY 6 HOURS NEEDED active Not Available Not Available No t Available Symbicort 160 mcg-4.5 mcg/actuation HFA aerosol inhaler INHALE 2 PUFFS BY MOUTH TWICE A DAY active Not Available Not Available No t Available Mucus Relief ER 600 mg tablet, extended release TAKE ONE TABLET BY MOUTH TWICE A DAY NEEDED FOR COUGH active Not Available Not Available No t Available Trelegy Ellipta 200 mcg-62.5 mcg-25 mcg powder for inhalation INHALE ONE PUFF BY MOUTH EVERY DAY DIRECTED active Not Available Not Available No t Available Vitals Date Recorded Heart rate Systolic blood pressure Diastolic blood pressure Provider Name and Address Organization Details Last Updated DateTime 12/28/2022 65 /min 128 mm[Hg] 46 mm[Hg] Not Available [facility] 12/28/2022 12:46:51 Social History None recorded. Functional Status None recorded. Mental Status None recorded. Family History Nothing Reported. Medical History No medical history recorded. Past Encounters Encounter ID Performer Location Encounter Start Date Encounter Closed Date Diagnosis/Indication Diagnosis SNOMED-CT Code [id number] [facility] [address] [place] [address] 09/05/2022 12:47:42 09/12/2022 11:02:26 [id number] [facility] [address] [facility] [place] [address] 09/27/2022 09:35:40 10/20/2022 08:42:53 [id number] [facility] [address] [facility] [place] [address] 10/11/2022 09:54:33 10/17/2022 08:58:29 [id number] [facility] [address] [facility] [place] [address] 12/28/2022 11:30:58 02/06/2023 11:44:50 Health Concerns Section Related Observation LastModified by Organization Detai ls LastModified Time None Recorded Concern Status LastModified by Organization Details LastModified Time None Recorded Advance Directives Directive None Recorded Payers Encounter Date Sequence Insurance Name Policy Number Policy Lane Covered Member ID Lane Member ID Guarantor Name 09/05/2022 [employer] (MOVED TO HOLD) Jose A Elko [id number] [facility] 09/05/2022 1 [employer] (MEDICAID) Jose A Jane [id number] [facility] 09/27/2022 [employer] D[employer]AL [employer]DER (MOVED TO HOLD) Jose A Jane [id number] [facility] 09/27/2022 1 [employer] (MEDICAID) Jose A Jane [id number] [facility] 10/11/2022 [employer] D[employer]AL [employer]ACE[employer]DER (MOVED TO HOLD) Jose A Jane [id number] Jose A [place] 10/11/2022 1 [employer] (MEDICAID) Jose A Jane [id number] Jose A [place] 12/28/2022 [employer] (MOVED TO HOLD) Jose A Jane [id number] Jose A [place] 12/28/2022 1 [employer] (MEDICAID) Jose A Jane [id number] [facility]
--- OUTSIDE RECORDS SUMMARY | 2023-11-13 18:09 | XMS_ITS | Continuity of Care Document ---
Author Organization [place] - [facility] Address [address] [place] [address] Assessment Encounter Date Assessment Date Assessment LastModified by Organization Details LastModified Time 11/13/2023 11/13/2023 Flu vaccine: declines Comirnaty: declines Td: current PCV20: completed Shingrix: declines RSV: counseled to get at local pharmacy as desires CRC: declines all screening AAA Screening: n/a Follow-up in 3 Months. Call or RTO sooner if needs arise. [email or web address] Not available 11/13/2023 14:37:58 Plan of Treatment Reminders Order Date Submit Date Provider Last Modified By Organization Details Last Modified Time Details Appointments Follow Up 2023 02:10P M ABHIJIT LUNA Not available Not available Not available Follow Up 2023 10:00A M ABHIJIT LUNA Not available Not available Not available Lab lipid panel, serum - 1 [place] 1 Purple, Drawn in office, Left AC, cp 2023 024 [email or web address] [facility] (Registration ), [address] [place] [address] [place], [address], 11/13/2023 16:02:30 CMP, serum or plasma 2023 024 [email or web address] [facility] (Registration ), [address] [place] [address] [place], [address], 11/13/2023 16:05:28 urinalysi s complete, reflex culture 2023 024 [email or web address] [facility] (Registration ), [address] [place] [address] [place], [address], 11/13/2023 16:02:30 microalbu min/creat inine, mass ratio, urine 2023 024 [facility] (Registration ), [address] [place] [address] [place], [address], 11/13/2023 16:02:30 iron + TIBC + ferritin, serum 2023 024 [facility] (Registration ), [address] [place] [address] [place], [address], 11/13/2023 16:02:30 CBC w/ diff 2023 024 [facility] (Registration ), [address] [place] [address] [place], [address], 11/13/2023 16:02:30 Referral None recorded. Procedures None recorded. Surgeries None recorded. Imaging None recorded. Medication Orders sildenafi l 50 mg tablet 2023 024 [email or web address] [facility] [place], [address], 11/13/2023 16:02:30 Singulair 10 mg tablet 2023 024 [facility], [address] [place], [address], 11/13/2023 16:02:30 Patient TargetsNo targets recorded. Patient InstructionsNo instructions recorded. Reason for Referral None Reported. Problems Name Status Onset Date Resolution Date Notes Provider Name and Address Organization Details Recorded Time Major depression, single episode Active 201411/12/2020 . Problem Code: F32.9; Problem Code Type: ICD-10; Traci juan [facility]. 11:29:26 Nicotine dependence Active 201411/12/2020 . Problem Code: F17.200; Problem Code Type: ICD-10; Traci juan, [facility]. 11:29:35 Obesity Active 201411/12/2020 . Problem Code: E66.9; Problem Code Type: ICD-10; Traci juan, [facility]. 11:29:52 Chronic obstructive pulmonary disease Active 201411/12/2020 Problem Code: J44.9; Problem Code Type: ICD-10; Traci juan, [facility]. 11:28:51 Screening for malignant neoplasm of colon Active 2018 Problem Code: Z12.11; Problem Code Type: ICD-10; ABHIJIT LUNA APRN [address], [place], [address] , [facility] 14:46:08 Atheroscleros is of artery Active 201811/12/2020 Problem Code: I70.90; Problem Code Type: ICD-10; Traci juan, [facility]. 11:28:35 Nonulcer dyspepsia Active 201911/12/2020 Problem Code: K30; Problem Code Type: ICD-10; Traci juan, [facility]. 11:29:44 Fatigue Active 202011/12/2020. Problem Code: R53.83; Problem Code Type: ICD-10; Traci juan, [facility]. 11:29:16 Iron deficiency anemia Active 2020 Problem Code: D50.9; Problem Code Type: ICD-10; [address], [place], [address] , [facility] 14:46:08 Disorder of lung Active 2020 Problem Code: J98.4; Problem Code Type: ICD-10; pulmonary nodule Traci juan, [facility] 4 11:29:04 Acute exacerbation of chronic obstructive pulmonary disease Completed 202207/23/2022 Problem Code: J44.1; Problem Code Type: ICD-10; [address], [facility] [address] [facility] 4 04:46:47 Hypoxemia Completed 202207/23/2022 Problem Code: R09.02; Problem Code Type: ICD-10; Not Available [facility] 3 05:11:23 Sleep apnea Active 2022 Problem Code: G47.30; Problem Code Type: ICD-10; [address], [place], [address] , [facility] 4 14:46:08 Joint pain Active 2022 Problem Code: M25.50; Problem Code Type: ICD-10; [address], [place], [address] [facility] 4 14:46:08 Carpal tunnel syndrome Active 2022 Problem Code: G56.00; Problem Code Type: ICD-10; [address], [place], [address] [facility] 4 14:46:08 Overweight Completed 201401/17/2023 Problem Code: E66.3; Problem Code Type: ICD-10; Not Available [facility] 3 05:11:24 Otitis media Completed 202208/02/2022 Problem Code: H66.90; Problem Code Type: ICD-10; Not Available [facility] 3 05:11:24 Disorder of male genital organ Completed 202004/21/2021 Problem Code: N50.9; Problem Code Type: ICD-10; Not Available [facility] 3 05:11:24 Pleuritic pain Completed 201610/12/2016 Problem Code: R07.81; Problem Code Type: ICD-10; Not Available [facility] 3 05:11:24 Cough Completed 201509/23/2018 Problem Code: R05; Problem Code Type: ICD-10; Not Available [facility] 3 05:11:24 Pneumonia Completed 201401/17/2023 Problem Code: J18.9; Problem Code Type: ICD-10; Not Available [facility] 3 05:11:25 Dyspnea Completed 201401/17/2023 11/06/2014 - Comments only - Abhijit Luna PHARMACY TECHNICIAN - Differentials include COPD, asthma,? Malignancy. We will start on Flovent, most likely will need anticholinerg ic as well. Albuterol inhaler PRN. We will order pulmonary function tests for evaluation. Consider chest x-ray if indicated, no improvement in respiratory status. Nursing to provide inhaler education. Discuss Pneumovax at next visit. Problem Code: R06.02; Problem Code Type: ICD-10; Not Available [facility] 3 05:11:25 Chest pain Completed 201404/21/2021 Problem Code: R07.9; Problem Code Type: ICD-10; Not Available [facility] 3 05:11:25 Carpal tunnel syndrome of left wrist Completed 202210/13/2022 Problem Code: G56.02; Problem Code Type: ICD-10; Not Available [facility] 3 05:11:25 History of recurrent pneumonia Completed 201409/23/2018 Problem Code: Z87.01; Problem Code Type: ICD-10; Not Available [facility] 3 05:11:25 Anemia Active 2020 Problem Code: D64.9; Problem Code Type: ICD-10; Not Available [facility] 4 05:35:55 Localized infection of skin AND/OR subcutaneous tissue Active 2022 Problem Code: L08.9; Problem Code Type: ICD-10; Not Available [facility] 4 05:35:55 Carpal tunnel syndrome Active 2023 ABHIJIT LUNA APRN [address], [place], [address] , [facility] 4 04:47:42 Type 2 diabetes mellitus without complication Active 2023 ABHIJIT LUNA APRN [address], [facility] [address] , [facility] 4 11:20:11 Prediabetes Active 2020 Traci odell juan, [facility] 4 11:30:33 Erectile dysfunction Active 2023 ABHIJIT LUNA APRN [address], [place], [address] , [facility] 4 14:28:33 Problem Notes None recorded. Medical [...] and Address Organization Details Last Updated DateTime 176.53 cm 30.6 kg/m2 82696.4 g 97.4 [degF] 94 % 94 % 80 /min 16 /min 112 mm[Hg] 60 mm[Hg] Dee Nesbitt RN [facility] 14:16:37 Social History Question Answer Notes LastModified by Organizat ion Details LastModified Time Tobacco Smoking Status Current Every Day Smoker GELACIO URBINA, [facility] 05/17/2023 10:59:27 What Was The [...] Recorded Time Tdap 01/31/2016 completed Not Available [facility] 04:53:20 Influenza, split virus, trivalent, preservative 06/18/2015 completed Not Available [facility] 03/02/2023 04:53:20 Influenza, split virus, trivalent, preservative 03/03/2016 completed Not Available [facility] 03/02/2023 04:53:21 COVID-19, mRNA, LNP-S, PF, 100 mcg/0.5mL dose or 50 mcg/0.25mL dose 07/26/2020 completed Not Available [facility] 03/02/2023 04:53:21 COVID-19, mRNA, LNP-S, PF, 100 mcg/0.5mL dose or 50 mcg/0.25mL dose 08/23/2020 completed Not Available [facility] 03/02/2023 04:53:21 COVID-19, mRNA, LNP-S, PF, 100 mcg/0.5mL dose or 50 mcg/0.25mL dose 03/22/2021 completed Not Available [facility] 03/02/2023 04:53:21 Pneumococcal conjugate PCV20, polysaccharide [id number] conjugate, adjuvant, PF 11/20/2022 completed Not Available [facility] 03/02/2023 04:53:21 pneumococcal polysaccharide PPV23 12/30/2015 completed Not Available [facility] 2022 04:53:21 Past Encounters Encounter ID Performer Location Encounter Start Date Encounter Closed Date Diagnosis/Indication Diagnosis SNOMED-CT Code [id number] ABHIJIT LUNA APRN [address] [address] 11/13/2023 14:08:55 11/13/2023 15:12:41 Carpal tunnel syndrome 19359022 Joint pain 53059523 Chronic ob structive pulmonary disease 00296252 Sleep apnea 94843039 Iron defic iency anemia 61820912 Type 2 karen betes mellitus without complication 036815936 Atheroscle rosis of artery 740234861 Nonulcer dyspepsia 95639 07 Major depr ession, single episode 85818770 Erectile dysfunction 860 707661 Goals Section Goal Description Status Start Date [...] by Organization Details LastModified Time None Recorded Payers Encounter Date Sequence Insurance Name Policy Number Policy Lane Covered Member ID Lane Member ID Guarantor Name 11/13/2023 1 [facility] (MEDICAID) Jose A Jane [id number] Jose A Jane Notes Date Note Type Note Provider Name and Address Organization Details Recorded Time 11/13/2023 text/html HPI Notes: Is he re [...] Takes simvastatin, ASA. - Depression. Takes sertraline. ABHIJIT LUNA, PHARMACY TECHNICIAN [address], [place], [address], [place] [facility]. 11/13/2023 16:00:54
--- OUTSIDE RECORDS SUMMARY | 2023-11-13 18:09 | XMS_ITS | Encounter Summary ---
Author Organization [facility] Address [address] [place] [address] Care Team Providers Care Stem Roller Or Crusher Operator Name Role Phone Connie Wang MD Primary Care Provider [phone] Encounter Details Date Type Department Care Team (Late st Contact Info) Description 09/07/2022 Lab Requisition [facility] Pathology & Laboratory Medicine - [address] [address] Outr Resulting Lab, Provider Social History Tobacco Use Types Packs/Day Years Used Date Smoking Tobacco: Never Assessed Sex and Gender Information Value Date Recorded Sex Assigned at Not on file Gender Identity Not on file Sexual Orientation Not on file documented as of this encounter Plan of Treatment Not on file documented as of this encounter Procedures Procedure Name Priority Date/Time Associated Diagnosis Comments LYME AB Routine 09/06/2022 12:00 EDT documented in this encounter Results * LYME AB (09/06/2022 12:00 EDT) Lyme Ab Negative Negative 09/08/2022 10:14 EDT [facility] Blood VENOUS BLOOD / Unknown 09/06/2022 12:00 EDT 09/07/2022 17:24 EDT Provider Outr Resulting Lab IMMUNOLOGY A ND SEROLOGY ORDERABLES [facility] [address] [place] [address] documented in this encounter Visit Diagnoses Not on filedocumented in this encounter Care Teams Stem Roller Or Crusher Operator Relationship Specialty Start Date End Date Connie Wang MD [address] [place] [phone] PCP - General 03/05/15 documented as of this encounter
--- OUTSIDE RECORDS SUMMARY | 2023-11-13 18:09 | XMS_ITS | Encounter Summary ---
Author Organization [facility] Address [address] [place] [address] Care Team Providers Care Composite Engineer Name Role Phone Unavailable Primary Care Provider Unavailabl e Encounter Details Date Type Department Care Team (Latest Contact Info) Description 09/29/2004 13:37 EDT Hospital Encounter [facility] - Other [address] [place] [address] Loki Aguiar Discharge Disposition: Auto Discharge Social History Tobacco Use Types Packs/Day Years Used Date Smoking Tobacco: Never Assessed Sex and Gender Information Value Date Recorded Sex Assigned at Not on file Gender Identity Not on file Sexual Orientation Not on file documented as of this encounter Discharge Disposition Disposition Code Departure Means Destination Auto Discharge documented in this encounter Plan of Treatment Not on file documented as of this encounter Procedures Procedure Name Priority Date/Time Associated Diagnosis Comments FINGER 2 OR MORE VIEWS Routine 09/29/2004 13:18 EDT documented in this encounter Results * FINGER 2 OR MORE VIEWS (09/29/2004 13:18 EDT) Anatomical Region Laterality Modality Other 09/29/2004 13:1 8 EDT Narrative 12/17/2008 14:55 EDT LT 4TH DIGIT F/X ASSESS HEALING AND ALIGNMENT FINGER, TWO VIEWS FINDINGS: Two views of the left fourth digits show soft tissue swelling proximally. No obvious fracture is noted in the fourth digit. Of note is callus formation around the head of the fifth metatarsal which is not seen on outside films from August 19, 2004 and probably represents previous fracture in this area. Again, no obvious bony healing is seen in the fourth digit. /tns Procedure Note Damian Britt MD - 12/17/2008 LT 4TH DIGIT F/X ASSESS HEALING AND ALIGNMENT FINGER, TWO VIEWS FINDINGS: Two views of the left fourth digits show soft tissue swelling proximally. No obvious fracture is noted in the fourth digit. Of note is callus formation around the head of the fifth metatarsal which is not seen on outside films from August 19, 2004 and probably represents previous fracture in this area. Again, no obvious bony healing is seen in the fourth digit. /geetha Loki GRAY DIAGNOSTIC IMAGI NG ORDERABLES documented in this encounter Visit Diagnoses Not on filedocumented in this encounter
--- OUTSIDE RECORDS SUMMARY | 2023-11-13 18:09 | XMS_ITS | Encounter Summary ---
Author Organization [facility] Address [address] [place] [address] Care Team Providers Care Patient Resource Specialist Name Role Phone Unavailable Primary Care Provider Unavailabl e Encounter Details Date Type Department Care Team (Latest Contact Info) Description 03/04/2015 13:12 EST - 03/04/2015 23:59 EST Hospital Encounter [facility] [address] [place] [address] Unknown, Provider, Discharge Disposition: Home or Self Care Social History Tobacco Use Types Packs/Day Years Used Date Smoking Tobacco: Never Assessed Sex and Gender Information Value Date Recorded Sex Assigned at Not on file Gender Identity Not on file Sexual Orientation Not on file documented as of this encounter Discharge Disposition Disposition Code Departure Means Destination Home or Self Senior Living documented in this encounter Plan of Treatment Not on file documented as of this encounter Visit Diagnoses Not on filedocumented in this encounter
--- OUTSIDE RECORDS SUMMARY | 2023-11-13 18:09 | XMS_ITS | Encounter Summary ---
Author Organization [facility] Address [address] [place] [address] Care Team Providers Care Superintendent Operations Division Name Role Phone Connie Wang MD Primary Care Provider [phone] Encounter Details Date Type Department Care Team (Late st Contact Info) Description 03/01/2016 Historical Results Only [facility] Radiology Results [address] [place] [address] Cnonie Whitley PA-C [address] [facility] [address] [place] [address] Social History Tobacco Use Types Packs/Day Years Used Date Smoking Tobacco: Never Assessed Sex and Gender Information Value Date Recorded Sex Assigned at Not on file Gender Identity Not on file Sexual Orientation Not on file documented as of this encounter Plan of Treatment Not on file documented as of this encounter Procedures Procedure Name Priority Date/Time Associated Diagnosis Comments XR CHEST 2 VIEWS 03/01/2016 19:4 3 EST documented in this encounter Results * XR CHEST 2 VIEWS (03/01/2016 19:43 EST) Anatomical Region Laterality Modality Other 03/01/2016 19:4 3 EST Narrative 03/01/2016 19:43 EST ? EXAM: RADIOLOGY EXPRESS CARE/EXP CARE XR ??EX. D/ (190) ? CLINICAL INFORMATION: ? PT WITH C/O SOB AND WHEEZE FOR 6 MONTHS, WHEEZE RO6.2 ? EXAM: ? XR Chest, 2 Views. ? CLINICAL HISTORY: ? 55 years old, male; Signs and symptoms; Cough and shortness of ? breath; Symptoms not specified; Additional info: Pt with C/O SOB and ? wheeze for 6 months, wheeze ro6.2 ? TECHNIQUE: ? Frontal and lateral views of the chest. ? COMPARISON: ? CR - EXP CARE XR CHEST PA ?? LAT 03/04/2015 2:26:37 PM ? FINDINGS: ? Lungs: ??Scattered calcified granulomas in the LEFT lung base. ??No ? focal airspace disease. ? Pleural spaces: ??Unremarkable. ??No pneumothorax. ? Heart: ??Unremarkable. ??No cardiomegaly. ? Mediastinum: ??Unremarkable. ? Bones/joints: ??Spondylosis in the thoracic spine. ??No acute ? fracture. ? IMPRESSION: ? 1. No acute findings. ? 2. Non-acute findings are described above. ? REPORT SIGNED IN OTHER VENDOR SYSTEM 03/01/2016 ?Reported By: Óscar Cheng MD ? CC: ? Transcribed Date/Time: 03/01/2016 (1943) ? Mica [employer]: ? Printed Date/Time: 10/05/2018 (0358) ? PAGE 1 ? Signed Report ? Procedure Note Óscar Cheng E - 02/26/2019 EXAM: RADIOLOGY EXPRESS CARE/EXP CARE XR EX. D/ (1904) CLINICAL INFORMATION: PT WITH C/O SOB AND WHEEZE FOR 6 MONTHS, WHEEZE RO6.2 EXAM: XR Chest, 2 Views. CLINICAL HISTORY: 55 years old, male; Signs and symptoms; Cough and shortness of breath; Symptoms not specified; Additional info: Pt with C/O SOB and wheeze for 6 months, wheeze ro6.2 TECHNIQUE: Frontal and lateral views of the chest. COMPARISON: CR - EXP CARE XR CHEST PA LAT 03/04/2015 2:26:37 PM FINDINGS: Lungs: Scattered calcified granulomas in the LEFT lung base. No focal airspace disease. Pleural spaces: Unremarkable. No pneumothorax. Heart: Unremarkable. No cardiomegaly. Mediastinum: Unremarkable. Bones/joints: Spondylosis in the thoracic spine. No acute fracture. IMPRESSION: 1. No acute findings. 2. Non-acute findings are described above. REPORT SIGNED IN OTHER VENDOR SYSTEM 03/01/2016 Reported By: Óscar Cheng MD CC: Transcribed Date/Time: 03/01/2016 (1943) [employer]: Printed Date/Time: 10/05/2018 (0355) PAGE 1 Signed Report Connie Whitley PA-C IMG DIAGNOSTIC IMAGI NG ORDERABLES documented in this encounter Visit Diagnoses Not on filedocumented in this encounter Care Teams Superintendent Operations Division Relationship Specialty Start Date End Date Connie Wang MD [address] [place] [phone] PCP - General 03/05/15 documented as of this encounter
--- OUTSIDE RECORDS SUMMARY | 2023-11-13 18:09 | XMS_ITS | Encounter Summary ---
Author Organization [facility] Address [address] [place] [address] Care Team Providers Care Feller Operator Name Role Phone Connie Wang MD Primary Care Provider [phone] Encounter Details Date Type Department Care Team (Late st Contact Info) Description 03/04/2015 Historical Results Only [facility] Radiology Results [address] [place] [address] Allyson Suero PA-C [address] [facility] [address] [place] [address] Social History Tobacco Use Types Packs/Day Years [...] Associated Diagnosis Comments XR CHEST 2 VIEWS 03/04/2015 14:5 7 EST documented in this encounter Results * XR CHEST 2 VIEWS (03/04/2015 14:57 EST) Anatomical Region Laterality Modality Other 03/04/2015 14:5 7 EST Narrative 03/04/2015 15:01 EST ? EXAM: RADIOLOGY EXPRESS CARE/EXP CARE XR ??EX. D/ (1432) ? CLINICAL INFORMATION: ? R06.00 - COUGH, FEVER, SOB. DONE AT EXPCARE ? Indication: Cough fever and dyspnea. ? Comparison: None. ? Technique: PA and lateral views. ? Findings: There is a small patchy density in the anterior aspect of ? the right upper lobe consistent with early pneumonia. Followup chest ? radiograph is recommended following appropriate medical management. ? The left lung is clear. The cardiomediastinal silhouette and ? pulmonary vessels are within normal limits. ? Impression: ? 1. Early right upper lobe pneumonia. Followup chest radiograph is ? recommended to confirm resolution. ? REPORT SIGNED IN OTHER VENDOR SYSTEM 03/04/2015 ?Reported By: Darian Low MD ? CC: ? Transcribed Date/Time: 03/04/2015 (1501) ? Political Consultant: ? Printed Date/Time: 10/02/2018 (8515) ? PAGE 1 ? Signed Report ? Procedure Note Darian Low MD - 02/26/2019 EXAM: RADIOLOGY EXPRESS CARE/EXP CARE XR EX. D/ (1432) CLINICAL INFORMATION: R06.00 - COUGH, FEVER, SOB. DONE AT EXPCARE Indication: Cough fever and dyspnea. Comparison: None. Technique: PA and lateral views. Findings: There is a small patchy density in the anterior aspect of the right upper lobe consistent with early pneumonia. Followupchest radiograph is recommended following appropriate medical management. The left lung is clear. The cardiomediastinal silhouette and pulmonary vessels are within normal limits. Impression: 1. Early right upper lobe pneumonia. Followup chest radiograph is recommended to confirm resolution. REPORT SIGNED IN OTHER VENDOR SYSTEM 03/04/2015 Reported By: Darian Low MD CC: Transcribed Date/Time: 03/04/2015 (7705) Political Consultant: Printed Date/Time: 10/02/2018 (5180) PAGE 1 Signed Report Allyson Suero PA-C IMG DIAGNOSTIC IM AGING ORDERABLES documented in this encounter Visit Diagnoses Not on filedocumented in this encounter Care Teams Feller Operator Relationship Specialty Start Date End Date Connie Wang MD [address] [place] [phone] PCP - General 03/05/15 documented as of this encounter
--- OUTSIDE RECORDS SUMMARY | 2023-11-13 18:09 | XMS_ITS | Referral Summary ---
Author Organization [facility] Address [address] [place] [address] Care Team Providers Care Financial Systems Director Name Role Phone Connie Wang MD Primary Care Provider [phone] Social History Tobacco Use Types Packs/Day Years Used Date Smoking Tobacco: Never Assessed Sex and Gender Information Value Date Recorded Sex Assigned at Not on file Gender Identity Not on file Sexual Orientation Not on file Plan of Treatment Not on file Care Teams Financial Systems Director Relationship Specialty Start Date End Date Connie Wang MD [address] [place] [phone] PCP - General 03/05/15
--- OUTSIDE RECORDS SUMMARY | 2023-11-13 18:09 | XMS_ITS | Clinical Summary ---
Author Organization [facility] Address [address] [place] [address] Care Team Providers Care Concrete Fence Builder Name Role Phone Connie Wang MD Primary Care Provider [phone] Social History Tobacco Use Types Packs/Day Years Used Date Smoking Tobacco: Never Assessed Sex and Gender Information Value Date Recorded Sex Assigned at Not on file Gender Identity Not on file Sexual Orientation Not on file Plan of Treatment Health Maintenance Due Date Last Done Comments Hepatitis C Screen 1960 RSV Immunization ( o r 60+ Years) (1 - 1-dose 60+ series) 2020 COVID-19 Vaccine (2022-24 season) 2022 Care Teams Concrete Fence Builder Relationship Specialty Start Date End Date Connie Wang MD [address] [place] [phone] PCP - General 03/05/15
--- OUTSIDE RECORDS SUMMARY | 2023-11-13 18:09 | XMS_ITS | Encounter Summary ---
Author Organization [facility] Address [address] [place] [id number] Care Team Providers Care Dental Biller Name Role Phone Connie Wang MD Primary Care Provider [phone] Encounter Details Date Type Department Care Team (Latest Contact Info) Description 03/01/2016 16:11 EST - 03/01/2016 23:59 EST Hospital Encounter [facility] [address] [place] [address] Unknown, Provider, Discharge Disposition: Auto Discharge Social History Tobacco Use Types Packs/Day Years Used Date Smoking Tobacco: Never Assessed Sex and Gender Information Value Date Recorded Sex Assigned at Not on file Gender Identity Not on file Sexual Orientation Not on file documented as of this encounter Discharge Disposition Disposition Code Departure Means Destination Auto Discharge Home documented in this encounter Plan of Treatment Not on file documented as of this encounter Visit Diagnoses Not on filedocumented in this encounter Care Teams Dental Biller Relationship Specialty Start Date End Date Connie Wang MD [address] [place] [phone] PCP - General 03/05/15 documented as of this encounter
[2023-11-13 21:40] LABS: Abs Immature Grans 0.02 10^3/uL (0.0-0.06); Absolute Basophil Count 0.05 10^3/uL (0.0-0.2); Absolute Eosinophil Count 0.23 10^3/uL (0.0-0.7); Absolute Lymphocyte Count 2.13 10^3/uL (1.2-3.4); Absolute Monocyte Count 0.59 10^3/uL (0.1-0.8); Absolute Neutrophil Count 4.29 10^3/uL (1.2-6.7); Basophils % 0.7 %; Eosinophils % 3.1 %; HCT 43.7 % (40.0-50.0); HGB 14.2 g/dL (13.5-17.5); Immature Grans % 0.3 %; Lymphocytes % 29.1 %; MCH 31.2 pg (27.0-33.0); MCHC 32.5 % (32.0-36.0); MCV 96 fL (80-95); MPV 11.2 fL (8.0-11.0); Monocytes % 8.1 %; Neutrophils % 58.7 %; Platelet Count 225 10^3/uL (130-400); RBC 4.55 10^6/uL (4.36-5.78); RDW 12.9 % (11.8-14.1); WBC 7.31 10^3/uL (4.4-10.8)
[2023-11-13 22:01] LABS: Iron 77 ug/dL (65-175); Total Iron Binding Capacity 309 ug/dL (250-450); Transferrin Sat 25 % (20-55)
[2023-11-13 22:37] LABS: ALT 19 U/L (16-63); AST 13 U/L (15-37); Albumin 3.7 g/dL (3.4-5.0); Alkaline Phosphatase 96 U/L (46-116); Anion Gap 9.1 mmol/L (3-11); BUN 13 mg/dL (7-18); Bilirubin, Total 0.27 mg/dL (0.2-1.0); CO2 27.9 mmol/L (21.0-32.0); Calcium 9.2 mg/dL (8.5-10.1); Calculated LDL 104 mg/dL (<100); Chloride 107 mmol/L (98-107); Cholesterol 175 mg/dL (<200); Estimated GFR 84.57 (mL/min/1.73m2); Ferritin 143 ng/mL (26-388); Glucose 123 mg/dL (74-106); HDL Cholesterol 47 mg/dL (40-60); Potassium 4.4 mmol/L (3.5-5.1); Sodium 144 mmol/L (136-145); Total Protein 7.3 g/dL (6.4-8.2); Triglyceride 121 mg/dL (<150)
== END 2023-11-13 18:09 | disposition home or self-care (01) ==
LOC: NCHCN 18:08
PROVIDERS: PCP Nurse Practitioner Family; Visit Provider Nurse Practitioner Family
DX: D50.9 Iron deficiency anemia, unspecified (principal); E11.9 Type 2 diabetes mellitus without complications
CPT/HCPCS: 80053; 80061; 82728; 83540; 83550; 85025

== ENCOUNTER 2023-11-15 13:48 | Outpatient (REF) | payer MEDICAID, SELFPAY ==
[2023-11-15 22:06] LABS: Bilirubin Negative (Negative); Blood Negative (Negative); Clarity Clear (Clear); Glucose Negative (Negative); Ketones Negative (Negative); Leukocyte Esterase Negative (Negative); Nitrite Negative (Negative); Urobilinogen 0.2 mg/dL (Up to 0.2)
[2023-11-15 22:18] LABS: COMMENT (LAB VIEW ONLY) 73.65 mg/dL; Microalb ug/mg Crea 3.1 ug/mg Cr
== END 2023-11-15 13:49 | disposition home or self-care (01) ==
LOC: NCHCN 13:48
PROVIDERS: PCP Nurse Practitioner Family; Visit Provider Nurse Practitioner Family
DX: E11.9 Type 2 diabetes mellitus without complications (principal)
CPT/HCPCS: 81003; 82043; 82570

== ENCOUNTER 2024-09-18 09:50 | Outpatient (REF) | payer MEDICAID, SELFPAY ==
[2024-09-18 16:18] LABS: Abs Immature Grans 0.02 10^3/uL (0.0-0.06); Absolute Basophil Count 0.05 10^3/uL (0.0-0.2); Absolute Eosinophil Count 0.23 10^3/uL (0.0-0.7); Absolute Lymphocyte Count 1.71 10^3/uL (1.2-3.4); Absolute Monocyte Count 0.91 10^3/uL (0.1-0.8); Absolute Neutrophil Count 5.32 10^3/uL (1.2-6.7); Basophils % 0.6 %; Eosinophils % 2.8 %; HCT 40.9 % (40.0-50.0); HGB 13.4 g/dL (13.5-17.5); Immature Grans % 0.2 %; Lymphocytes % 20.8 %; MCH 31.5 pg (27.0-33.0); MCHC 32.8 % (32.0-36.0); MCV 96 fL (80-95); MPV 10.8 fL (8.0-11.0); Neutrophils % 64.6 %; Platelet Count 240 10^3/uL (130-400); RBC 4.25 10^6/uL (4.36-5.78); RDW 13.1 % (11.8-14.1); RDW-SD 46.5 fL; WBC 8.24 10^3/uL (4.4-10.8)
[2024-09-18 16:20] LABS: Bilirubin Negative (Negative); Blood Negative (Negative); Clarity Clear (Clear); Glucose Negative (Negative); Ketones Negative (Negative); Leukocyte Esterase Negative (Negative); Nitrite Negative (Negative); Specific Gravity 1.025 (1.005-1.025)
[2024-09-18 16:34] LABS: Iron 44 ug/dL (65-175); Total Iron Binding Capacity 273 ug/dL (250-450); Transferrin Sat 16 % (20-55)
[2024-09-18 16:52] LABS: ALT 15 U/L (16-63); AST 19 U/L (15-37); Albumin 3.7 g/dL (3.4-5.0); Alkaline Phosphatase 92 U/L (46-116); Anion Gap 4.8 mmol/L (3-11); BUN 14 mg/dL (7-18); Bilirubin, Total 0.2 mg/dL (0.2-1.0); CO2 31.2 mmol/L (21.0-32.0); CREATININE 0.9 mg/dL (0.70-1.30); Calcium 9.3 mg/dL (8.5-10.1); Chloride 107 mmol/L (98-107); Estimated GFR 95.37 (mL/min/1.73m2); Ferritin 107 ng/mL (26-388); Glucose 119 mg/dL (74-106); Potassium 4.8 mmol/L (3.5-5.1); Sodium 143 mmol/L (136-145)
[2024-09-18 16:54] LABS: COMMENT (LAB VIEW ONLY) 159.89 mg/dL; Microalb ug/mg Crea 4.4 ug/mg Cr
== END 2024-09-18 09:51 | disposition home or self-care (01) ==
LOC: NCHCN 09:50
PROVIDERS: PCP Nurse Practitioner Family; Visit Provider Nurse Practitioner Family
DX: D64.9 Anemia, unspecified (principal); I70.90 Unspecified atherosclerosis
CPT/HCPCS: 80053; 81003; 82043; 82570; 82728; 83540; 83550; 85025

== ENCOUNTER 2025-03-16 11:11 | Outpatient (REF) | payer MEDICAID, SELFPAY ==
[2025-03-16 15:39] LABS: Abs Immature Grans 0.02 10^3/uL (0.0-0.06); HCT 41.2 % (40.0-50.0); HGB 13.8 g/dL (13.5-17.5); Immature Grans % 0.2 %; MCH 31.9 pg (27.0-33.0); MCHC 33.5 % (32.0-36.0); MCV 95 fL (80-95); MPV 10.6 fL (8.0-11.0); Platelet Count 244 10^3/uL (130-400); RBC 4.32 10^6/uL (4.36-5.78); RDW 12.7 % (11.8-14.1); RDW-SD 44.8 fL; WBC 9.14 10^3/uL (4.4-10.8)
[2025-03-16 15:54] LABS: Iron 39 ug/dL (65-175); Total Iron Binding Capacity 321 ug/dL (250-425); Transferrin Sat 12 % (20-55)
[2025-03-16 16:23] LABS: TSH (W/Ref FT4) 1.53 uIU/mL (0.55-4.78)
[2025-03-16 16:30] LABS: Magnesium 2.0 mg/dL (1.6-2.6)
[2025-03-16 16:33] LABS: ALT 14 U/L (10-49); AST 18 U/L (<34); Albumin 4.3 g/dL (3.4-5.0); Alkaline Phosphatase 81 U/L (46-116); Anion Gap 3 mmol/L (3-11); BUN 17 mg/dL (9-23); Bilirubin, Total 0.30 mg/dL (0.2-1.2); CO2 30.0 mmol/L (20.0-31.0); Calcium 9.6 mg/dL (8.3-10.6); Chloride 107 mmol/L (98-107); Cholesterol 167 mg/dL (<200); Glucose 109 mg/dL (74-106); HDL Cholesterol 55 mg/dL (>40); Potassium 4.3 mmol/L (3.5-5.1); Sodium 140 mmol/L (136-145); Total Protein 7.2 g/dL (5.7-8.2)
[2025-03-16 18:34] LABS: Vitamin B12 348 pg/mL (211-911)
== END 2025-03-16 11:12 | disposition home or self-care (01) ==
LOC: NCHCN 11:11
PROVIDERS: PCP Nurse Practitioner Family; Visit Provider Nurse Practitioner Family
DX: D50.9 Iron deficiency anemia, unspecified (principal); K30 Functional dyspepsia; R73.03 Prediabetes; I70.90 Unspecified atherosclerosis; R51.9 Headache, unspecified
CPT/HCPCS: 80053; 80061; 82607; 83540; 83550; 83735; 84443; 85025